=== PATIENT | female | born 1940 | race Caucasian/White ===

== ENCOUNTER 2016-09-22 18:24 | Emergency (ER) | payer MEDICARE, OTHER ==
[~2016-09-22] VITALS: Ht 157.5 cm; Wt 69.9 kg
[~2016-09-22 18:24] MED LIST: C250T PO; CALC-80 PO; CITA20TA4 PO; FENO134C PO; HYDR1TAB PO; LVT.1T PO; OMEG1CAP51 PO; VALS1TAB4 PO
--- OUTSIDE RECORDS SUMMARY | 2016-09-22 18:29 | XMS REPORT | Continuity of Care Document ---
Author Author [facility] Organization [facility] Address Unknown Phone Unavailable Allergies Active Description Code Type Severity Reaction Onset Reported/Identified Relationship to Patient Clinical Status Yes No Known Drug Allergies [id number] Drug Allergy Unknown N/ A 04/25/2010 Medications Problems Date Dx Coded Attending Type Code Diagnosis Diagnosed By 04/27/2010 Ot 574.10 10/15/2014 Ot V76.12 10/15/2014 Ot 574.20 10/15/2014 Ot V72.63 10/15/2014 Ot V72.81 10/15/2014 Ot V74.8 10/15/2014 Ot V76.12 10/15/2014 Ot 789.01 10/18/2014 FRANKY DYSON MD Ot 272.4 10/18/2014 FRANKY DYSON MD Ot 401.9 10/18/2014 FRANKY DYSON MD Ot 443.9 10/18/2014 FRANKY DYSON MD Ot 786.50 10/28/2014 FRANKY DYSON MD Ot 272.4 10/28/2014 FRANKY DYSON MD Ot 401.9 10/28/2014 FRANKY DYSON MD Ot 443.9 10/28/2014 FRANKY DYSON MD Ot 786.50 11/03/2014 FRANKY DYSON MD Ot 272.4 11/03/2014 FRANKY DYSON MD Ot 401.9 11/03/2014 FRANKY DYSON MD Ot 443.9 11/03/2014 FRANKY DYSON MD Ot 786.50 12/07/2014 Ot V76.12 12/07/2014 Ot 574.20 12/07/2014 Ot V72.63 12/07/2014 Ot V72.81 12/07/2014 Ot V74.8 12/07/2014 Ot V76.12 12/07/2014 Ot 789.01 12/07/2014 KARIS MD, BASHAR J Ot 272.4 12/07/2014 KARIS CEDILLO, BASHAR J Ot 401.9 12/07/2014 KARIS CEDILLO, BASHAR J Ot 443.9 12/07/2014 KARIS CEDILLO, BASHAR J Ot 786.50 12/07/2014 KARIS CEDILLO, BASHAR J Ot 272.4 12/07/2014 KARIS CEDILLO, BASHAR J Ot 401.9 12/07/2014 KARIS CEDILLO, BASHAR J Ot 443.9 12/07/2014 KARIS CEDILLO, BASHAR J Ot 786.50 12/08/2014 KARIS CEDILLO, BASHAR J Ot 401.9 12/21/2014 KARIS CEDILLO, BASHAR J Ot 272.4 12/21/2014 KARIS CEDILLO, BASHAR J Ot 401.9 12/21/2014 KARIS CEDILLO, KIRTIHAR J Ot 443.9 12/21/2014 KARIS CEDILLO, FRANKY J Ot 786.50 12/21/2014 KARIS CEDILLO, BASHAR J Ot 401.9 12/22/2014 KARIS CEDILLO, BASHAR J Ot 401.9 01/07/2015 KARIS CEDILLO, BASHAR J Ot 272.4 01/07/2015 KARIS CEDILLO, BASHAR J Ot 401.9 01/07/2015 KARIS CEDILLO, BASHAR J Ot 443.9 01/07/2015 KARIS CEDILLO, FRANKY J Ot 786.50 01/10/2015 KARIS CEDILLO, BASHAR J Ot 401.9 01/10/2015 KARIS CEDILLO, BASHAR J Ot 401.9 01/10/2015 KARIS CEDILLO, FRANKY J Ot 272.4 01/10/2015 KARIS CEDILLO, BASHAR J Ot 401.9 01/10/2015 KARIS CEDILLO, BASHAR J Ot 443.9 01/10/2015 KARIS CEDILLO, BASHAR J Ot 786.50 03/07/2015 KARIS CEDILLO, BASHAR J Ot 401.9 HYPERTENSION NOS 04/18/2015 KARIS CEDILLO, KIRTIHAR J Ot 272.4 04/18/2015 KARIS CEDILLO, BASHAR J Ot 401.9 04/18/2015 KARIS CEDILLO, KIRTIHAR J Ot 443.9 04/18/2015 KARIS CEDILLO, KIRTIHAR J Ot 786.50 08/10/2015 Ot 574.20 08/10/2015 Ot V72.63 08/10/2015 Ot V72.81 08/10/2015 Ot V74.8 08/10/2015 Ot V76.12 08/10/2015 Ot 789.01 08/10/2015 FRANKY DYSON MD Ot 272.4 08/10/2015 KARIS CEDILLO, FRANKY [place] Ot 401.9 08/10/2015 KARIS CEDILLO, FRANKY [place] Ot 443.9 08/10/2015 FRANKY DYSON MD Ot 786.50 08/10/2015 KARIS CEDILOL, FRANKY [place] Ot 272.4 08/10/2015 KARIS CEDILLO, FRANKY J Ot 401.9 08/10/2015 KARIS CEDILLO, FRANKY [place] Ot 443.9 08/10/2015 FRANKY DYSON MD Ot 786.50 08/10/2015 KARIS CEDILLO, FRANKY [place] Ot 401.9 08/10/2015 FRANKY DYSON MD Ot 401.9 11/03/2015 KARIS CEDILLO, FRANKY [place] Ot 272.4 11/03/2015 KARIS CEDILLO, FRANKY [place] Ot 401.9 11/03/2015 KARIS CEDILLO, FRANKY [place] Ot 443.9 11/03/2015 FRANKY DYSON MD Ot 786.50 09/22/2016 Ot 789.01 ABDOMINAL PAIN, RIGHT UPPER QUADRANT 09/22/2016 FRANKY DYSON MD Ot 272.4 HYPERLIPIDEMIA NEC/NOS 09/22/2016 FRANKY DYSON MD Ot 401.9 HYPERTENSION NOS 09/22/2016 FRANKY DYSON MD Ot 443.9 PERIPH VASCULAR DIS NOS 09/22/2016 FRANKY DYSON MD Ot 786.50 CHEST PAIN NOS 09/22/2016 FRANKY DYSON MD Ot 272.4 HYPERLIPIDEMIA NEC/NOS 09/22/2016 FRANKY DYSON MD Ot 401.9 HYPERTENSION NOS 09/22/2016 FRANKY DYSON MD Ot 443.9 PERIPH VASCULAR DIS NOS 09/22/2016 FRANKY DYSON MD Ot 786.50 CHEST PAIN NOS 09/22/2016 FRANKY DYSON MD Ot 401.9 HYPERTENSION NOS 09/22/2016 FRANKY DYSON MD Ot 401.9 HYPERTENSION NOS 09/22/2016 MEREDITH CEDILLO, RONALD Lora Ot Z12.31 ENCNTR SCREEN MAMMOGRAM FOR MALIGNANT NE Procedures Results Encounters ACCT No. Visit Date/Time Discharge Status Pt. Type Provider Facility Loc./Unit Complaint [id number] 03/08/2015 00:10:00 2014 23:59:59 CLS Preadmit FRANKY DYSON MD [facility] LAB HTN [id number] 12/15/2014 10:07:00 2014 00:01:00 DIS Outpatient FRANKY DYSON MD [facility] LAB HTN [id number] 12/20/2014 08:28:00 2014 23:59:59 CLS Outpatient FRANKY DYSON MD [facility] RAD HTN [id number] 11/01/2014 07:51:00 2014 23:59:59 CLS Outpatient FRANKY DYSON MD [facility] CARD CP,HTN,HLP [id number] 10/15/2014 13:42:00 2014 23:59:59 CLS Outpatient FRANKY DYSON MD [facility] CARD CP,HTN,HLP [id number] 09/22/2016 18:25:00 ACT Emergency DC HALL DO [facility] ER HIGH BP [id number] 08/10/2015 09:15:00 ACT Outpatient RONALD HARPER MD [facility] RAD SCREENING [id number] 10/15/2014 13:41:00 Document Registration [id number] 10/15/2014 13:41:00 Document Registration [id number] 10/15/2014 13:41:00 Document Registration [id number] 04/27/2010 05:56:00 Document Registration [id number] 04/25/2010 08:09:00 Document Registration [id number] 12/20/2009 07:51:00 Document Registration
[2016-09-22] MEDS ORDERED: LORA0.5T (19:28)
--- NOTE | 2016-09-22 19:29 | ED Cardiac General ---
History of Present Illness General Chief Complaint: Cardiac/General Problems Stated Complaint: HIGH BP Source: patient, RN notes reviewed Exam Limitations: no limitations History of Present Illness Time seen by provider: 19:29 Initial Comments Patient complaining of DICKENS x 2 days as well as chest fullness x 24 hours and back pain x 12 hours. Hx of hypertension and has noted her BP to be high. Denies missing any doses of her medications. Timing/Duration: 1-2 days Severity: moderate Location: substernal Activities at Onset: none Modifying Factors: improves with other (none) NTG SL PLASTICATOR: No ASA po PLASTICATOR: No Associated Systoms: Chest Pain, Headaches Allergies and Home Medications Allergies Coded Allergies: No Known Drug Allergies (Unverified , 04/25/10) Home Medications Amlodipine Besylate 5 Mg Tablet, 5 MG PO DAILY, #30 Ref 2 Prescribed by: DC HALL on 09/22/162058 Citalopram Hydrobromide 20 Mg Tablet, 20 MG PO DAILY, (Reported) Clonidine 1 Each Patch.tdwk, 1 PATCH TD Q7D, (Reported) Dicyclomine HCl 20 Mg Tablet, 20 MG PO QID, (Reported) Hydrochlorothiazide 25 Mg Tablet, 25 MG PO DAILY, (Reported) Levothyroxine Sodium 100 Mcg Tablet, 1 EACH PO DAILY, (Reported) Lorazepam 0.5 Mg Tablet, #45 (Reported) Metoprolol Tartrate 50 Mg Tablet, 50 MG PO BID, (Reported) Pantoprazole Sodium 40 Mg Tablet.dr, 40 MG PO DAILY, (Reported) Valsartan 320 Mg Tablet, 320 MG PO DAILY, (Reported) Zolpidem Tartrate 5 Mg Tablet, 5 MG PO HS, (Reported) Review of Systems Constitutional: see HPI Cardiovascular: See HPI, Chest Pain Musculoskeletal: see HPI, back pain Psychiatric/Neurological: See HPI, Headache Past Dymeusj-Engfhg-Rlvqlx Hx Patient Social History Recent Foreign Travel: No Contact w/Someone Who Travel: No Respiratory Hx Respiratory Disorders: No Cardiovascular Hx Cardiac Disorders: Yes Neurological Hx Neurological Disorders: No Reproductive System Hx Reproductive Disorders: No Genitourinary Hx Genitourinary Disorders: No Gastrointestinal Hx Gastrointestinal Disorders: No Musculoskeletal Hx Musculoskeletal Disorders: Yes (RA) Endocrine Hx Endocrine Disorders: Yes HEENT HX ENT Disorders: No Blood Transfusions Hx Blood Disorders: No Physical Exam Vital Signs Capillary Refill : General Appearance: No Apparent Distress, WD/WN HEENT: PERRL/EOMI, Normal ENT Inspection Respiratory: No Respiratory Distress Cardiovascular: Regular Rate, Rhythm Rectal: Deferred Neurologic/Psychiatric: Alert, Oriented x3, No Motor/Sensory Deficits, Normal Mood/Affect Skin: Warm/Dry Progress/Results/Core Measures Results/Orders Lab Results Laboratory Tests Test 09/22/16 19:23 09/22/16 20:22 Range/Units White Blood Count 5.4 4.3-11.0 10^3/uL Red Blood Count 4.17 L 4.35-5.85 10^6/uL Hemoglobin 13.2 11.5-16.0 G/DL Hematocrit 39 35-52 % Mean Corpuscular Volume 95 80-99 FL Mean Corpuscular Hemoglobin 32 25-34 PG Mean Corpuscular Hemoglobin Concent 34 32-36 G/DL Red Cell Distribution Width 13.7 10.0-14.5 % Platelet Count 184 130-400 10^3/uL Mean Platelet Volume 11.0 H 7.4-10.4 FL Neutrophils (%) (Auto) 40 L 42-75 % Lymphocytes (%) (Auto) 44 12-44 % Monocytes (%) (Auto) 11 0-12 % Eosinophils (%) (Auto) 4 0-10 % Basophils (%) (Auto) 1 0-10 % Neutrophils # (Auto) 2.2 1.8-7.8 X 10^3 Lymphocytes # (Auto) 2.4 1.0-4.0 X 10^3 Monocytes # (Auto) 0.6 0.0-1.0 X 10^3 Eosinophils # (Auto) 0.2 0.0-0.3 10^3/uL Basophils # (Auto) 0.0 0.0-0.1 10^3/uL Sodium Level 142 135-145 MMOL/L Potassium Level 3.6 3.6-5.0 MMOL/L Chloride Level 110 H 98-107 MMOL/L Carbon Dioxide Level 24 21-32 MMOL/L Anion Gap 8 5-14 MMOL/L Blood Urea Nitrogen 21 H 7-18 MG/DL Creatinine 0.97 0.60-1.30 MG/DL Estimat Glomerular Filtration Rate 56 BUN/Creatinine Ratio 22 Glucose Level 91 70-105 MG/DL Calcium Level 8.9 8.5-10.1 MG/DL Magnesium Level 2.2 1.8-2.4 MG/DL Total Bilirubin 0.3 0.1-1.0 MG/DL Aspartate Amino Transf (AST/SGOT) 14 5-34 U/L Alanine Aminotransferase (ALT/SGPT) 14 0-55 U/L Alkaline Phosphatase 53 40-136 U/L Troponin I < 0.30 <0.30 NG/ML B-Type Natriuretic Peptide 92.9 <100.0 PG/ML Total Protein 6.9 6.4-8.2 G/DL Albumin 3.8 3.2-4.5 G/DL Urine Color YELLOW Urine Clarity CLEAR Urine pH 6 5-9 Urine Specific [place] 1.015 L 1.016-1.022 Urine Protein NEGATIVE NEGATIVE Urine Glucose (UA) NEGATIVE NEGATIVE Urine Ketones NEGATIVE NEGATIVE Urine Nitrite NEGATIVE NEGATIVE Urine Bilirubin NEGATIVE NEGATIVE Urine Urobilinogen NORMAL NORMAL MG/DL Urine Leukocyte Esterase 2+ H NEGATIVE Urine RBC (Auto) NEGATIVE NEGATIVE Urine RBC NONE /HPF Urine WBC 0-2 /HPF Urine Squamous Epithelial Cells 10-25 H /HPF Urine Renal Epithelial Cells NONE /HPF Urine Crystals NONE /LPF Urine Bacteria NEGATIVE /HPF Urine Casts NONE /LPF Urine Mucus NEGATIVE /LPF Urine Culture Indicated NO My Orders Orders - DC HALL DO Saline Lock/Iv-Start (09/22/16 19:30) Ekg Tracing (09/22/16 19:30) BNP (09/22/16 19:30) Cbc With Automated Diff (09/22/16 19:30) Comprehensive Metabolic Panel (09/22/16 19:30) Magnesium (09/22/16 19:30) Troponin I (09/22/16 19:30) Ua Culture If Indicated (09/22/16 19:30) Chest 1 View, Ap/Pa Only (09/22/16 19:30) Hydralazine Injection (Apresoline Inject (09/22/16 19:45) Amlodipine Tablet (Norvasc Tablet) (09/22/16 20:15) Iv Push Casting Supervisor Ed (09/22/16 ) Medications Given in ED Vital Signs/I&O ECG Initial ECG Impression Date: Sep 22, 2016 Initial ECG Impression Time: 19:25 Initial ECG Rate: 58 Initial ECG Rhythm: S.Pop Initial ECG Intervals: Normal Initial ECG Impression: Nonspecific Changes (LVH c/ secondary to repolarization abnormality; probable inferior infarct of ? age) Initial ECG Comparisson: No Previous ECG Available Diagnostic Imaging Diagonstic Imaging: Xray Plain Films/CT/US/NM/MRI: chest (big heart o/w unremarkable) Departure Impression Impression: Primary Impression: Hypertensive urgency Disposition: HOME, SELF-CARE Condition: Improved Departure-Patient Inst. Decision time for Depature: 20:58 Referrals: RONALD HARPER MD (PCP) Primary Care Physician Patient Instructions: High Blood Pressure in Adults Scripts Amlodipine Besylate (Norvasc) 5 Mg Tablet 5 MG PO DAILY, #30 TAB 2 Refills Prov: DC HALL DO 09/22/16 DC HALL DO Sep 22, 2016 19:29
[2016-09-22 19:39] LABS: BASOPHILS % (AUTO) 1 % (0-10); EOSINOPHILS # (AUTO) 0.2 10^3/uL (0.0-0.3); EOSINOPHILS % (AUTO) 4 % (0-10); LYMPHOCYTES # (AUTO) 2.4 X 10^3 (1.0-4.0); LYMPHOCYTES % (AUTO) 44 % (12-44); MEAN CORPUSCULAR HEMOGLOBIN 32 PG (25-34); MEAN CORPUSCULAR HGB CONC 34 G/DL (32-36); MEAN CORPUSCULAR VOLUME 95 FL (80-99); MONOCYTES # (AUTO) 0.6 X 10^3 (0.0-1.0); MONOCYTES % (AUTO) 11 % (0-12); NEUTROPHILS # (AUTO) 2.2 X 10^3 (1.8-7.8); NEUTROPHILS % (AUTO) 40 % (42-75); PLATELET COUNT 184 10^3/uL (130-400); RED BLOOD COUNT 4.17 10^6/uL (4.35-5.85); RED CELL DISTRIBUTION WIDTH 13.7 % (10.0-14.5); WHITE BLOOD COUNT 5.4 10^3/uL (4.3-11.0)
[2016-09-22] MEDS ORDERED: hydrALAZINE (APESOLINE) 20 MG/ML VIAL IV ONE (19:45)
[2016-09-22 19:53] LABS: ALANINE AMINOTRANSFERASE 14 U/L (0-55); ALBUMIN 3.8 G/DL (3.2-4.5); ANION GAP 8 MMOL/L (5-14); ASPARTATE AMINO TRANSFERASE 14 U/L (5-34); BILIRUBIN,TOTAL 0.3 MG/DL (0.1-1.0); BLOOD UREA NITROGEN 21 MG/DL (7-18); BUN/CREATININE RATIO 22; CALCIUM 8.9 MG/DL (8.5-10.1); CARBON DIOXIDE 24 MMOL/L (21-32); CHLORIDE 110 MMOL/L (98-107); CREATININE SERUM 0.97 MG/DL (0.60-1.30); GFR ESTIMATED 56; GLUCOSE 91 MG/DL (70-105); MAGNESIUM 2.2 MG/DL (1.8-2.4); POTASSIUM 3.6 MMOL/L (3.6-5.0); SODIUM 142 MMOL/L (135-145); TOTAL PROTEIN 6.9 G/DL (6.4-8.2)
[2016-09-22 19:58] LABS: TROPONIN I < 0.30 NG/ML (<0.30)
[2016-09-22] MEDS ORDERED: amLODIPine 5 MG (NORVASC) TAB PO ONE (20:15)
[2016-09-22 20:30] LABS: BILIRUBIN,URINE NEGATIVE (NEGATIVE); KETONES,URINE NEGATIVE (NEGATIVE); LEUKOCYTE ESTERASE ,URINE 2+ (NEGATIVE); NITRITE,URINE NEGATIVE (NEGATIVE); PH,URINE 6 (5-9); PROTEIN,URINE NEGATIVE (NEGATIVE); UROBILINOGEN,URINE NORMAL (NORMAL)
[2016-09-22 20:42] LABS: WBC,URINE 0-2 /HPF
[2016-09-22] MEDS ORDERED: AMLO5TAB4 PO (20:59)
[2016-09-22 21:13] VITALS: BP 171/96
--- NOTE | 2016-09-22 21:37 | Diagnostic Imaging Report ---
EXAM: CHEST 1 VIEW, AP/PA ONLY INDICATION: Hypertension. COMPARISON: None. FINDINGS: Cardiomegaly. Normal pulmonary vascularity. No focal pulmonary opacity, pleural effusion or pneumothorax. Calcified tortuous aorta. No acute osseous findings. IMPRESSION: Cardiomegaly with normal pulmonary vascularity. No focal consolidation. Dictated by: Dictated on workstation # [id number]
[2016-09-23] MEDS ORDERED: VALS320T14 PO (00:05)
[2016-09-23] MEDS ORDERED: PANT40TA3 PO (00:05)
[2016-09-23] MEDS ORDERED: METO50TA2 PO (00:05)
[2016-09-23] MEDS ORDERED: ZOLP5TAB7 PO (00:05)
[2016-09-23] MEDS ORDERED: HYDR25TA4 PO (00:05)
[2016-09-23] MEDS ORDERED: DICY20TA10 PO (00:05)
[2016-09-23] MEDS ORDERED: CLON1PAT16 TD (00:05)
== END 2016-09-22 21:13 | disposition home or self-care (01) ==
LOC: EDUNIT# 18:24 → ER 18:25
DX: I16.0 Hypertensive urgency (principal); Z79.899 Other long term (current) drug therapy
CPT/HCPCS: 36415; 71010; 80053; 81000; 83735; 83880; 84484; 85025; 93005; 96374

== ENCOUNTER → 2016-10-02 | Outpatient (CLI) | payer MEDICARE, OTHER ==
[~2016-10-02] MED LIST changes: +AMLO5TAB4 PO; +CLON1PAT16 TD; +DICY20TA10 PO; +HYDR25TA4 PO; +LORA0.5T; +METO50TA2 PO; +PANT40TA3 PO; +VALS320T14 PO; +ZOLP5TAB7 PO
--- OUTSIDE RECORDS SUMMARY | 2016-10-02 12:04 | XMS REPORT | Continuity of Care Document ---
Author Author [facility] Organization [facility] Address Unknown Phone Unavailable Care Team Providers Care Paper Machine Tender Name Role Phone RONALD HARPER MD PCP Insurance Providers Payer Name Policy Number Subscriber Name Relationship [employer] Gold Choice [id number] Cheryl Osborne 18 Self / Same As Patient Advance Directives Directive Response Recorded Date/Time Advance Directives No 09/22/16 7:02pm Health Care Power of Director Of Publications No 09/22/16 7:02pm Organ Donor No 09/22/16 7:02pm Resuscitation Status Full Code 09/22/16 7:02pm Chief Complaint and Reason for Visit Chief Complaint Cardiac/General Problems Reason for Visit Hypertensive urgency Problems Active Problems Medical Problem Onset Date Status Hypertensive urgency Unknown Acute Medications Current Home Medications Medication Dose Units Route Directions Days/Qty Instructions Start Date Hctz/Valsartan 1 Each 1 Each Oral Daily 04/25/10 Levothyroxine Sodium (Levothroid) 100 Mcg 1 Each Oral Daily 04/25/10 Citalopram Hydrobromide 20 Mg 20 Mg Oral Daily 04/25/10 Fenofibrate (Lofibra) 134 Mg 1 Each Oral Daily 04/25/10 [place]-3 Fatty Acids/Fish Oil 1 Each 1 Each Oral Daily 04/25/10 Calcium Carbonate/Vitamin D3 1 Each 2 Each Oral Daily 04/25/10 Ascorbic Acid 250 Mg 250 Mg Oral Daily 04/25/10 Acetaminophen/Hydrocodone Bitart 1 Each 1 - 2 Each Oral Q4hr Prn 01/28 Lorazepam 0.5 Mg 45 09/22/16 Amlodipine Besylate 5 Mg 5 Mg Oral Daily 30 09/22/16 Social History Social History Problem Response Recorded Date/Time Alcohol Use Denies Use 09/22/2016 7:02pm Recreational Drug Use No 09/22/2016 7:02pm Recent Foreign Travel No 09/22/2016 7:02pm Recent Infectious Disease Exposure No 09/22/2016 7:02pm Hospitalization with Isolation Denies 09/22/2016 7:02pm Sexually Transmitted Disease No 09/22/2016 7:02pm Smoking Status Never a Smoker 09/22/2016 7:02pm Recent Hopitalizations No 09/22/2016 7:02pm Sexually Transmitted Disease No 09/22/2016 7:02pm Hospitalization with Isolation Denies 09/22/2016 7:02pm Hx Sexually Transmitted Disorders No 04/27/2010 6:50am Query Response Start Date Stop Date Smoking Status Never a Smoker Hospital Discharge Instructions No hospital discharge instructions. Plan of Care Discharge Date 09/22/16 9:13pm Disposition 01 HOME, SELF-CARE Condition at Discharge Improved Instructions/Education Provided High Blood Pressure in Adults Prescriptions See Medication Section Referrals RONALD HARPER MD - Primary Care Physician Functional Status No functional status results. Allergies, Adverse Reactions, Alerts No known allergies. Immunizations No immunization records. Vital Signs Acute Vital Signs Vital Response Date/Time Temperature (Fahrenheit) 98.3 degrees F (97.6 - 99.5) 09/22/2016 7:02pm Temperature (Calculated Celsius) 36.17595 degrees C (36.4 - 37.5) 09/22/2016 7:02pm Temperature Source Temporal 09/22/2016 7:02pm Pulse Rate (adult) 63 bpm (60 - 90) 09/22/2016 7:02pm Respiratory Rate 20 bpm (12 - 24) 09/22/2016 7:02pm O2 Sat by Pulse Oximetry 97 % (88 - 100) 09/22/2016 7:02pm Blood Pressure 245/120 mm Hg 09/22/2016 7:02pm Blood Pressure Mean 161 mm Hg 09/22/2016 7:02pm Pain Numeric Pain Scale 4 09/22/2016 7:02pm Height (Feet) 5 feet 09/22/2016 7:02pm Height (Inches) 2 inches 09/22/2016 7:02pm Height (Calculated Centimeters) 157.014671 cm 09/22/2016 7:02pm Weight (Pounds) 154 pounds 09/22/2016 7:02pm Weight (Calculated Kilograms) 69.523984 kilograms 09/22/2016 7:02pm Capillary Refill Capillary Refill Less Than 3 Seconds 09/22/2016 7:02pm Height 5 ft 2 in Weight 154 lb Body Mass Index 28.2 kg/m^2 Results Laboratory Results Test Name Result Units Flags Reference Collection Date/Time Result Date/ Time Comments White Blood Count 5.4 10^3/uL 4.3-11.0 09/22/2016 7:23pm 09/22/2016 7: 55pm Red Blood Count 4.17 10^6/uL L 4.35-5.85 09/22/2016 7:23pm 09/22/2016 7: 55pm Hemoglobin 13.2 G/DL 11.5-16.0 09/22/2016 7:pm 09/22/2016 7:55pm Hematocrit 39 % 35-52 09/22/2016 7:09/22/2016 7:55pm Mean Corpuscular Volume 95 FL 80-99 09/22/2016 7:pm 09/22/2016 7: 55pm Mean Corpuscular Hemoglobin 32 PG 25-34 09/22/2016 7:pm 09/22/2016 7: 55pm Mean Corpuscular Hemoglobin Concent 34 G/DL 32-36 09/22/2016 7:pm 10/2016 7:55pm Red Cell Distribution Width 13.7 % 10.0-14.5 09/22/2016 7:pm 2016 7:55pm Platelet Count 184 10^3/uL 130-400 09/22/2016 7:pm 09/22/2016 7:55pm Mean Platelet Volume 11.0 FL H 7.4-10.4 09/22/2016 7:pm 09/22/2016 7: 55pm Neutrophils (%) (Auto) 40 % L 42-75 09/22/2016 7:pm 09/22/2016 7:55pm Lymphocytes (%) (Auto) 44 % 12-44 09/22/2016 7:09/22/2016 7:55pm Monocytes (%) (Auto) 11 % 0-12 09/22/2016 7:23pm 09/22/2016 7:55pm Eosinophils (%) (Auto) 4 % 0-10 09/22/2016 7:23pm 09/22/2016 7:55pm Basophils (%) (Auto) 1 % 0-10 09/22/2016 7:23pm 09/22/2016 7:55pm Neutrophils # (Auto) 2.2 X 10^3 1.8-7.8 09/22/2016 7:23pm 09/22/2016 7: 55pm Lymphocytes # (Auto) 2.4 X 10^3 1.0-4.0 09/22/2016 7:23pm 09/22/2016 7: 55pm Monocytes # (Auto) 0.6 X 10^3 0.0-1.0 09/22/2016 7:23pm 09/22/2016 7: 55pm Eosinophils # (Auto) 0.2 10^3/uL 0.0-0.3 09/22/2016 7:23pm 09/22/2016 7 :55pm Basophils # (Auto) 0.0 10^3/uL 0.0-0.1 09/22/2016 7:23pm 09/22/2016 7: 55pm Urine Color YELLOW 09/22/2016 8:22pm 09/22/2016 8:43pm Urine Clarity CLEAR 09/22/2016 8:22pm 09/22/2016 8:43pm Urine pH 6 5-9 09/22/2016 8:22pm 09/22/2016 8:43pm Urine Specific [place] 1.015 * 1.016-1.022 09/22/2016 8:22pm 2016 8:43pm Urine Protein NEGATIVE NEGATIVE 09/22/2016 8:22pm 09/22/2016 8:43pm Urine Glucose (UA) NEGATIVE NEGATIVE 09/22/2016 8:22pm 09/22/2016 8: 43pm Urine RBC (Auto) NEGATIVE NEGATIVE 09/22/2016 8:22pm 09/22/2016 8: 43pm Urine Ketones NEGATIVE NEGATIVE 09/22/2016 8:22pm 09/22/2016 8:43pm Urine Nitrite NEGATIVE NEGATIVE 09/22/2016 8:22pm 09/22/2016 8:43pm Urine Bilirubin NEGATIVE NEGATIVE 09/22/2016 8:22pm 09/22/2016 8: 43pm Urine Urobilinogen NORMAL MG/DL NORMAL 09/22/2016 8:22pm 09/22/2016 8: 43pm Urine Leukocyte Esterase 2+ * NEGATIVE 09/22/2016 8:22pm 09/22/2016 8: 43pm Urine RBC NONE /HPF 09/22/2016 8:22pm 09/22/2016 8:43pm Urine WBC 0-2 /HPF 09/22/2016 8:pm 09/22/2016 8:43pm Urine Bacteria NEGATIVE /HPF 09/22/2016 8:22pm 09/22/2016 8:43pm Urine Squamous Epithelial Cells 10-25 /HPF * 09/22/2016 8:pm 2016 8:43pm Urine Renal Epithelial Cells NONE /HPF 09/22/2016 8:22pm 09/22/2016 8 :43pm Urine Crystals NONE /LPF 09/22/2016 8:22pm 09/22/2016 8:43pm Urine Casts NONE /LPF 09/22/2016 8:pm 09/22/2016 8:43pm Urine Mucus NEGATIVE /LPF 09/22/2016 8:pm 09/22/2016 8:43pm Urine Culture Indicated NO 09/22/2016 8:pm 09/22/2016 8:43pm Sodium Level 142 MMOL/L 135-145 09/22/2016 7:23pm 09/22/2016 7:54pm Potassium Level 3.6 MMOL/L 3.6-5.0 09/22/2016 7:23pm 09/22/2016 7:54pm Chloride Level 110 MMOL/L H 98-107 09/22/2016 7:23pm 09/22/2016 7:54pm Carbon Dioxide Level 24 MMOL/L 21-32 09/22/2016 7:pm 09/22/2016 7: 54pm Anion Gap 8 MMOL/L 5-14 09/22/2016 7:23pm 09/22/2016 7:54pm Blood Urea Nitrogen 21 MG/DL H 7-18 09/22/2016 7:23pm 09/22/2016 7:54pm Creatinine 0.97 MG/DL 0.60-1.30 09/22/2016 7:23pm 09/22/2016 7:54pm BUN/Creatinine Ratio 22 09/22/2016 7:09/22/2016 7:54pm Estimat Glomerular Filtration Rate 56 09/22/2016 7:pm 09/22/2016 7:54pm GFR INTERPRETIVE DATA UNITS FOR ESTIMATED GFR (eGFR): mL/min/1.73 M2 REFERENCE RANGE FOR ESTIMATED GFR (eGFR) eGFR NORMAL eGFR >60 MODERATELY DECREASED eGFR 30-59 SEVERLY DECREASED eGFR 15-29 KIDNEY FAILURE <15 (OR DIALYSIS) Glucose Level 91 MG/DL 70-105 09/22/2016 7:pm 09/22/2016 7:54pm Calcium Level 8.9 MG/DL 8.5-10.1 09/22/2016 7:pm 09/22/2016 7:54pm Magnesium Level 2.2 MG/DL 1.8-2.4 09/22/2016 7:pm 09/22/2016 7:54pm Total Bilirubin 0.3 MG/DL 0.1-1.0 09/22/2016 7:pm 09/22/2016 7:54pm Alkaline Phosphatase 53 U/L 40-136 09/22/2016 7:pm 09/22/2016 7:54pm Aspartate Amino Transf (AST/SGOT) 14 U/L 5-34 09/22/2016 7:pm 2016 7:54pm Alanine Aminotransferase (ALT/SGPT) 14 U/L 0-55 09/22/2016 7:pm 09/22 7:54pm Troponin I < 0.30 NG/ML <0.30 09/22/2016 7:pm 09/22/2016 7:59pm B-Type Natriuretic Peptide 92.9 PG/ML <100.0 09/22/2016 7:2016 8:27pm Total Protein 6.9 G/DL 6.4-8.2 09/22/2016 7:09/22/2016 7:54pm Albumin 3.8 G/DL 3.2-4.5 09/22/2016 7:pm 09/22/2016 7:54pm Procedures Procedure Status Date Provider(s) Tracing only of electrocardiogram Active 09/22/16 DC HALL DO Encounters Encounter Location Arrival/Admit Date Discharge/Depart Date Attending Provider Registered Emergency Room [facility] 09/22/16 6:25pm DC HALL DO Recent Diagnosis
--- NOTE | 2016-10-03 08:04 | ECHOCARDIOGRAPHY REPORT ---
PROCEDURE PHYSICIAN: FRANKY DYSON DATE OF PROCEDURE: 10/02/2016 TWO DIMENSIONAL ECHOCARDIOGRAM REPORT PRIMARY PHYSICIAN: OTHER PHYSICIAN: REFERRING PHYSICIAN: Dr. Taylor Cruz ORDERING PHYSICIAN: INDICATION FOR THE PROCEDURE: Hypertension. MEASUREMENTS DERIVED VALUES LV DIAMETER (LAX) NORMALS NORMALS Diastolic 3.9 (3.6-5.2) Eject. Fract. 60% (60%+/-6%) Systolic (2.3-3.9) Diastolic Vol. % Shortening (0.22-0.42) Systolic Vol. Aortic Root IVS THICKNESS Diastolic 1.2 (0.6-1.1) LVPW THICKNESS Diastolic 1.2 (0.6-1.1) LA DIAMETER Systolic 3.6 (2.1-3.7) FINDINGS: 1. Technical quality is good. 2. The left ventricle is normal in size with mild left ventricular hypertrophy noted diffusely. Systolic function appeared to be normal. Estimated ejection fraction 60%. Diastolic dysfunction is suggested by Doppler. 3. The left atrium is normal in size. No clot or thrombus were seen within the left atrium. 4. The right atrium and right ventricle are normal in size. No clot or thrombus were seen within the right side. 5. Mitral valve is normal in morphology with mild mitral regurgitation noted by color Doppler flow. No mitral valve prolapse. No mitral valve stenosis. 6. Aortic valve is calcified. Still has good opening and closing pattern. Doppler across the aortic valve estimated the peak gradient of 23 mm mean gradient of 11 mmHg, calculated valve area of 1.5 to 2.1 sq cm, it appeared to be in minimal aortic valve stenosis. No aortic regurgitation was seen. 7. Tricuspid valve is normal in morphology with mild tricuspid regurgitation noted by color Doppler flow. Doppler across tricuspid valve estimated pulmonary artery pressure of 27+ right atrial pressure. 8. Pulmonic valve is functioning normally. 9. No pericardial effusion. IN CONCLUSION: 1. Normal left ventricular size with mild left ventricular hypertrophy. Systolic function appeared to be normal. Estimated ejection fraction 60%. Diastolic dysfunction is suggested by Doppler. 2. Calcified aortic valve with minimal aortic valve stenosis, no aortic regurgitation. 3. Mild mitral and tricuspid regurgitation. 4. Estimated pulmonary artery pressure of 35 mmHg. Job ID: [id number] Dictated Date: 10/02/2016 16:48:56 Trash Collector Supervisor Date: 10/03/2016 08:00:24 / bill
== END ==
LOC: CARD 12:00
PROVIDERS: ATTEND Physician Assistant
DX: I65.23 Occlusion and stenosis of bilateral carotid arteries (principal); E78.2 Mixed hyperlipidemia; I10 Essential (primary) hypertension; R94.31 Abnormal electrocardiogram [ECG] [EKG]
CPT/HCPCS: 93306

== ENCOUNTER → 2017-01-03 | Outpatient (CLI) | payer MEDICARE ==
--- NOTE | 2017-01-03 12:27 | Diagnostic Imaging Report ---
PROCEDURE: MRI left upper extremity without contrast. TECHNIQUE: Multiplanar, multisequence non contrast-enhanced MRI of the left upper extremity was accomplished. INDICATION: Left shoulder pain and weakness. FINDINGS: There is no os acromiale or Hill-Sachs deformity. The acromioclavicular joint demonstrates osteoarthritic changes with subchondral edema and mild inferior osteophytes. These have a mild impression upon the myotendinous junction of the supraspinatus. There is thickening in the supraspinatus and infraspinatus distal tendons compatible with tendinosis with foci of low-grade intrasubstance tears. No full-thickness tear or tendon retraction seen. The long head biceps tendon is within its groove. There is increased signal in the distal fibers of the subscapularis tendon suggestive of tendinosis. No retracted tear. The proximal aspect of the long head biceps tendon is not well evaluated. The labrum demonstrates abnormal morphology and increased signal within the superior segment compatible with degeneration and tears. Subchondral edema in the glenoid is probably related to osteoarthritic changes with minimal subchondral edema in the inferior aspect of the humeral head seen as well. There is suggestion of prominent cartilage thinning in the central posterior aspect of the glenoid. There is a [id number] glenohumeral joint effusion. The muscle bulk and signal around the shoulder is normal. IMPRESSION: 1. Rotator cuff tendinosis and low-grade intrasubstance tear seen. 2. Glenohumeral joint osteoarthritis with cartilage thinning and subchondral edema more prominent along the glenoid. 3. Suggestion of degeneration and tear in the superior segment of the labrum. 4. 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 Dictated by: Dictated on workstation # [id number]
== END ==
LOC: RAD 11:18
PROVIDERS: ATTEND Family Medicine
DX: M19.012 Primary osteoarthritis, left shoulder (principal)
CPT/HCPCS: 73221

== ENCOUNTER 2017-03-07 14:34 | Outpatient (RCR) | payer MEDICARE, OTHER | END 2017-03-07 15:04 | disposition home or self-care (01) | PROVIDERS: ATTEND Orthopaedic Surgery Sports Medicine | DX: M19.012 Primary osteoarthritis, left shoulder (principal) ==

== ENCOUNTER 2017-04-28 22:34 | Emergency (ER) | payer MEDICARE ==
[~2017-04-28] VITALS: Ht 157.5 cm; Wt 70.3 kg
--- OUTSIDE RECORDS SUMMARY | 2017-04-28 22:40 | XMS REPORT ---
Author Author AMIRA AMATO Organization [facility] Address [address] [place] [address] Care Team Providers Care Sneller Hand Name Role Phone AMIRA AMATO Unavailable PROBLEMS Unknown Problems ALLERGIES Substance Reaction Event Type Date Status N.K.D.A. Unknown Non Drug Allergy Jul, Unknown SOCIAL HISTORY No smoking Hx information available PLAN OF CARE Activity Details Follow Up prn Reason: VITAL SIGNS Height 62 in 2016-08-07 Weight 152.6 lbs 2016-08-07 Temperature 99.0 degrees Fahrenheit 2016-08-07 Heart Rate 78 bpm 2016-08-07 Respiratory Rate 18 2016-08-07 Oximetry on room air:95 % 2016-08-07 BMI 27.91 kg/m2 2016-08-07 Blood pressure systolic 138 mmHg 2016-08-07 Blood pressure diastolic 84 mmHg 2016-08-07 MEDICATIONS Medication Instructions Dosage Frequency Start Date End Date Duration Status Levothyroxine Sodium 100 MCG Orally Once a day 1 tablet on an empty stomach in the morning 24h Active Doxycycline Hyclate 100 MG Orally every 12 hrs 1 capsule 12h Jul, Jul, 10 days Active Citalopram Hydrobromide 40 MG Orally Once a day 0.5 tablet 24h Active Mobic 7.5 MG Orally Once a day 1 tablet 24h Active Clonidine HCl 0.3 MG/24HR 1 patch to skin Active Diovan 160 MG Orally Once a day 1 tablet 24h Active RESULTS Name Result Date Reference Range INFLUENZA A & B (IN HOUSE) 2016-08-07 INFLUENZA A negative INFLUENZA B negative Control + Lot # [id number] Exp date 2018 PROCEDURES Procedure Date Ordered Related Diagnosis Body Site ALBUTEROL UNIT DOSE FORM INHALED 2016-08-07 N/A INFLUENZA ASSAY W/OPTIC Aug 07, 2016 ALBUTEROL INHAL UNIT DOSE 1 MG Aug 07, 2016 MEASURE BLOOD OXYGEN LEVEL Aug 07, 2016 Office Visit, Est Pt., Level 3 Aug 07, 2016 [facility] VISIT ESTABLISHED PATIENT Aug 07, 2016 IMMUNIZATIONS No Known Immunizations
[2017-04-28] MEDS ORDERED: fentaNYL INJECTION 100 MCG/2 ML AMP IVP STA (23:22)
[2017-04-28] MEDS ORDERED: KETOROLAC 30 MG/ML VIAL IVP STA (23:22)
[2017-04-28 23:23] LABS: BASOPHILS % (AUTO) 1 % (0-10); EOSINOPHILS # (AUTO) 0.4 10^3/uL (0.0-0.3); EOSINOPHILS % (AUTO) 6 % (0-10); LYMPHOCYTES # (AUTO) 2.3 X 10^3 (1.0-4.0); LYMPHOCYTES % (AUTO) 37 % (12-44); MEAN CORPUSCULAR HEMOGLOBIN 31 PG (25-34); MEAN CORPUSCULAR HGB CONC 34 G/DL (32-36); MEAN CORPUSCULAR VOLUME 94 FL (80-99); MEAN PLATELET VOLUME 10.9 FL (7.4-10.4); MONOCYTES # (AUTO) 0.5 X 10^3 (0.0-1.0); MONOCYTES % (AUTO) 9 % (0-12); NEUTROPHILS # (AUTO) 2.9 X 10^3 (1.8-7.8); NEUTROPHILS % (AUTO) 47 % (42-75); PLATELET COUNT 179 10^3/uL (130-400); RED BLOOD COUNT 4.08 10^6/uL (4.35-5.85); WHITE BLOOD COUNT 6.2 10^3/uL (4.3-11.0)
[2017-04-28] MEDS ORDERED: DEXAMETHASONE 10 MG/ML (DECADRON) 1 ML VIAL IV ONE (23:30)
[2017-04-28] MEDS ORDERED: DIAZ5TAB3 PO (23:34)
[2017-04-28] MEDS ORDERED: CLON0.1T (23:34)
--- NOTE | 2017-04-28 23:38 | ED General ---
General Chief Complaint: Head/Cervical Problems Stated Complaint: HEAD PAIN UPSET STOMACH Nursing Triage Note: TO ED AMB WITH DGT, C/O SEVERE FRONTAL DICKENS. PT HAD CONGESTION SX WITH NASAL DRIP JUST PRIOR TO HEADACHE. PT HAS TRIED BENADRYL, TYLENOL AND HER EVENING BP MEDS ARE TAKEN. LAST DOSE CLONIDINE BETWEEN [id number] Nursing Sepsis Screen: No Definite Risk Source of Information: Patient, Family Exam Limitations: No Limitations History of Present Illness Time Seen by Provider: 23:10 Initial Comments Here with report of frontal headache and elevated blood pressure. She noted that showed rhinorrhea and then postnasal drip. She took Tylenol and Inderal and this did not help. Her blood pressure worsened afterwards. She reports taking her evening blood pressure medicines. Complains of frontal headache bilateral but also notes that she has a posterior headache as well. Does have a history of labile blood pressure that is difficult to control. She is concerned about sinus infection. Denies nausea, vomiting, diarrhea, fever or chills. States that the nasal congestion or problems came on rather quickly this evening. She knows it Benadryl probably didn't help her blood pressure but states that all she had. Timing/Duration: 4-6 Hours Severity: Moderate Modifying Factors: worse with Medication Associated Systoms: No Chest Pain, No Cough, No Diaphoresis, No Fever/Chills, Headaches, No Nausea/Vomiting, No Shortness of Air, No Weakness Allergies and Home Medications Allergies Coded Allergies: No Known Drug Allergies (Unverified , 04/25/10) Home Medications Amlodipine Besylate 5 Mg Tablet, 5 MG PO DAILY, #30 Ref 2 Prescribed by: DC HALL on 09/22/162058 Citalopram Hydrobromide 20 Mg Tablet, 20 MG PO DAILY, (Reported) Clonidine HCl 0.1 Mg Tablet, (Reported) Diazepam 5 Mg Tablet, 5 MG PO HS PRN for SLEEP, (Reported) Dicyclomine HCl 20 Mg Tablet, 20 MG PO QID, (Reported) Hydrochlorothiazide 25 Mg Tablet, 25 MG PO DAILY, (Reported) Levothyroxine Sodium 100 Mcg Tablet, 1 EACH PO DAILY, (Reported) Metoprolol Tartrate 50 Mg Tablet, 50 MG PO BID, (Reported) Pantoprazole Sodium 40 Mg Tablet.dr, 40 MG PO DAILY, (Reported) Valsartan 320 Mg Tablet, 320 MG PO DAILY, (Reported) Constitutional: see HPI, No chills, No fever EENTM: see HPI, nose congestion, nose pain, No throat pain Respiratory: no symptoms reported, No cough, No short of breath Cardiovascular: see HPI, No chest pain, No edema, No palpitations Gastrointestinal: No diarrhea, No nausea, No vomiting Genitourinary: no symptoms reported Musculoskeletal: no symptoms reported Skin: no symptoms reported Psychiatric/Neurological: See HPI, Headache, Denies Numbness All Other Systems Reviewed Negative Unless Noted: Yes Past Rdgpaum-Qdavgo-Wgnrsm Hx Patient Social History Alcohol Use: Denies Use Recreational Drug Use: No Smoking Status: Never a Smoker 2nd Hand Smoke Exposure: No Recent Foreign Travel: No Contact w/Someone Who Travel: No Recent Infectious Disease Expo: No Recent Hopitalizations: No Seasonal Allergies Seasonal Allergies: No Surgeries History of Surgeries: Yes (R TKR, BREAST BX, ORAL SURGERY) Surgeries: Appendectomy, Gallbladder, Joint Replacement Respiratory History of Respiratory Disorde: Yes Respiratory Disorders: Sleep Apnea Currently Using CPAP: No (HAS MACHINE BUT REFUSES TO WEAR) Cardiovascular History of Cardiac Disorders: Yes Cardiac Disorders: Hypertension Neurological History of Neurological Disord: No Reproductive System Hx Reproductive Disorders: No Sexually Transmitted Disease: No Genitourinary History of Genitourinary Disor: No Gastrointestinal History of Gastrointestinal Di: Yes (S/P GB SURGERY WITH SOME DUMPING SYNDROME) Gastrointestinal Disorders: Gastroesophageal Reflux, Irritable Bowel Musculoskeletal History of Musculoskeletal Dis: Yes Musculoskeletal Disorders: Arthritis Endocrine History of Endocrine Disorders: Yes Endocrine Disorders: Hypothyroidsim HEENT History of HEENT Disorders: Yes (R VITREOUS TEAR ) Cancer History of Cancer: No Psychosocial History of Psychiatric Problem: Yes (VALIUM FOR SLEEP) Behavioral Health Disorders: Sleep Difficulties, Anxiety Integumentary History of Skin or Integumenta: No Blood Transfusions History of Blood Disorders: No Reviewed Nursing Assessment Reviewed/Agree w Nursing PMH: Yes Physical Exam Vital Signs Vital Sign - Last 12Hours 04/28/17 23:02 Temp 97.5 Pulse 65 Resp 16 B/P (MAP) 187/130 Pulse Ox 94 O2 Delivery Room Air Capillary Refill : Less Than 3 Seconds General Appearance: WD/WN, Mild Distress (headache) HEENT: PERRL/EOMI, Pharynx Normal, Other (bilateral frontal sinus tenderness and moderate nasal congestion with erythema and clear rhinorrhea) Neck: Full Range of Motion, Normal Inspection, Non Tender, Supple Respiratory: Lungs Clear, Normal Breath Sounds Cardiovascular: Regular Rate, Rhythm, No Murmur Gastrointestinal: Non Tender, Soft Back: Normal Inspection, No CVA Tenderness, No Vertebral Tenderness Extremity: Normal Range of Motion, Non Tender, No Calf Tenderness Neurologic/Psychiatric: Alert, Oriented x3, No Motor/Sensory Deficits Skin: Normal Color, Warm/Dry Progress/Results/Core Measures Results/Orders Lab Results Laboratory Tests Test 04/28/17 23:15 Range/Units White Blood Count 6.2 4.3-11.0 10^3/uL Red Blood Count 4.08 L 4.35-5.85 10^6/uL Hemoglobin 12.8 11.5-16.0 G/DL Hematocrit 38 35-52 % Mean Corpuscular Volume 94 80-99 FL Mean Corpuscular Hemoglobin 31 25-34 PG Mean Corpuscular Hemoglobin Concent 34 32-36 G/DL Red Cell Distribution Width 13.0 10.0-14.5 % Platelet Count 179 130-400 10^3/uL Mean Platelet Volume 10.9 H 7.4-10.4 FL Neutrophils (%) (Auto) 47 42-75 % Lymphocytes (%) (Auto) 37 12-44 % Monocytes (%) (Auto) 9 0-12 % Eosinophils (%) (Auto) 6 0-10 % Basophils (%) (Auto) 1 0-10 % Neutrophils # (Auto) 2.9 1.8-7.8 X 10^3 Lymphocytes # (Auto) 2.3 1.0-4.0 X 10^3 Monocytes # (Auto) 0.5 0.0-1.0 X 10^3 Eosinophils # (Auto) 0.4 H 0.0-0.3 10^3/uL Basophils # (Auto) 0.0 0.0-0.1 10^3/uL Sodium Level 143 135-145 MMOL/L Potassium Level 3.5 L 3.6-5.0 MMOL/L Chloride Level 106 98-107 MMOL/L Carbon Dioxide Level 27 21-32 MMOL/L Anion Gap 10 5-14 MMOL/L Blood Urea Nitrogen 17 7-18 MG/DL Creatinine 1.02 0.60-1.30 MG/DL Estimat Glomerular Filtration Rate 53 BUN/Creatinine Ratio 17 Glucose Level 115 H 70-105 MG/DL Calcium Level 8.9 8.5-10.1 MG/DL Total Bilirubin 0.4 0.1-1.0 MG/DL Aspartate Amino Transf (AST/SGOT) 20 5-34 U/L Alanine Aminotransferase (ALT/SGPT) 18 0-55 U/L Alkaline Phosphatase 48 40-136 U/L C-Reactive Protein High Sensitivity 0.48 0.00-0.50 MG/DL Total Protein 7.1 6.4-8.2 GM/DL Albumin 3.7 3.2-4.5 GM/DL My Orders Orders - RONALD NUNEZ MD Cbc With Automated Diff (04/28/17 23:12) Comprehensive Metabolic Panel (04/28/17 23:12) Hs C Reactive Protein (04/28/17 23:12) Saline Lock/Iv-Start (04/28/17 23:12) Ct Head Wo (04/28/17 23:12) Fentanyl Injection (Sublimaze Injection (04/28/17 23:22) Ketorolac Injection (Toradol Injection) (04/28/17 23:22) Dexamethasone Injection (Decadron Inject (04/28/17 23:30) Cefdinir Capsule (Omnicef Capsule) (04/29/17 00:30) Medications Given in ED Current Medications Medications Dose Ordered Sig/Nohemi Route Start Time Stop Time Status Last Admin Dose Admin Dexamethasone Sodium Phosphate 10 mg ONCE ONCE IV 04/28/17 23:30 04/28/17 23:31 DC 04/28/17 23:42 10 MG Vital Signs/I&O Vital Sign - Last 12Hours 04/28/17 04/28/17 04/28/17 23:02 23:42 23:42 Temp 97.5 97.5 97.5 Pulse 65 Resp 16 B/P (MAP) 187/130 Pulse Ox 94 O2 Delivery Room Air Blood Pressure Mean: 149 Progress Note : Progress Note Seen and evaluated. IV, labs, fentanyl 25 g IV, Toradol 15 mg IV and Decadron [address] head to evaluate sinuses ordered. Monitor patient. 0015 : CT results reviewed. Patient's blood pressure has declined to 157/86 and she feels much better. There is fluid within both sphenoid sinuses with right greater than left suggestive of sinus disease. We will treat that cefdinir 300 mg by mouth ordered. We will continue his outpatient. Discharged home with return precautions. Patient verbalize understanding instructions and agreement with plan. Diagnostic Imaging Diagonstic Imaging: CT Plain Films/CT/US/NM/MRI: head Comments No intracranial hemorrhage, mass effect or edema. No evidence of acute cortical stroke. 2.4 cm mucus retention cyst versus polyp in the left maxillary sinus. A small amount of layering fluid is seen within the right maxillary sinus. A 0.7 cm mucus retention cyst versus polyp in the left maxillary sinus. Mild mucosal thickening of the bilateral ethmoid cells is seen. Small amount of layering fluid is seen within both sphenoid sinuses, right greater than left. Findings suggestive of sinus disease. Incidental finding hyperostosis frontalis interna. The mastoid air cells. Clear. Reviewed: Reviewed by Me Departure Impression Impression: Primary Impression: Sinusitis Qualified Codes: J01.10 - Acute frontal sinusitis, unspecified Additional Impression: Labile blood pressure Disposition: HOME, SELF-CARE Condition: Stable Departure-Patient Inst. Decision time for Depature: 00:22 Referrals: FRANKY DYSON MD (PCP) Primary Care Physician JANET GRACIA MD Patient Instructions: Sinusitis, Adult (DC) Add. Discharge Instructions: All discharge instructions reviewed with patient and/or family. Voiced understanding. Take medications as directed. Follow-up with your DrCharles in one to 2 days for recheck and further evaluation. You can consider referral to Dr. Gracia for follow-up with him for the sinusitis and the bilateral retention cyst versus polyps in the maxillary sinus region. Continue home medications as directed. Return for worse pain, fever, vomiting, weakness, breathing problems or other concerns as needed. Scripts Cefdinir (Cefdinir) 300 Mg Capsule 300 MG PO BID, #19 CAP 0 Refills Prov: RONALD NUNEZ MD 04/29/17 RONALD NUNEZ MD Apr 28, 2017 23:38
[2017-04-28 23:44] LABS: ALBUMIN 3.7 GM/DL (3.2-4.5); BILIRUBIN,TOTAL 0.4 MG/DL (0.1-1.0); CALCIUM 8.9 MG/DL (8.5-10.1); CREATININE SERUM 1.02 MG/DL (0.60-1.30); POTASSIUM 3.5 MMOL/L (3.6-5.0); TOTAL PROTEIN 7.1 GM/DL (6.4-8.2); hs C REACTIVE PROTEIN 0.48 MG/DL (0.00-0.50)
[2017-04-29] MEDS ORDERED: CEFD300C3 PO (00:24)
[2017-04-29 00:27] VITALS: BP 157/86
[2017-04-29] MEDS ORDERED: CEFDINIR 300 MG (OMNICEF) CAP PO ONE (00:30)
--- NOTE | 2017-04-29 06:57 | Diagnostic Imaging Report ---
PROCEDURE: CT head without contrast. TECHNIQUE: Multiple contiguous axial images were obtained through the brain without the use of intravenous contrast. INDICATION: Headache. FINDINGS: There is mild prominence of the ventricles and sulci. There is no hydrocephalus. There is no midline shift. There is no intracranial mass, hemorrhage or extra-axial fluid collection. There is a small lacunar infarct in the left basal ganglia. There is no evidence of an acute cortical stroke. There is an air-fluid level in the right maxillary sinus. There is a mucous retention cyst and/or polyp in the left maxillary sinus. The frontal, ethmoid and sphenoid sinuses are clear. Mastoid air cells are clear. Incidental note is made of some hyperostosis frontalis. IMPRESSION: Bilateral maxillary sinus disease. Atrophy and chronic lacunar infarct in the left basal ganglia, however, no acute intracranial abnormality. Dictated by: Dictated on workstation # [id number]
== END 2017-04-29 00:27 | disposition home or self-care (01) ==
LOC: EDUNIT# 22:34 → ER 22:36
DX: J32.9 Chronic sinusitis, unspecified (principal); G47.30 Sleep apnea, unspecified; I10 Essential (primary) hypertension; K21.9 Gastro-esophageal reflux disease without esophagitis; E03.9 Hypothyroidism, unspecified; F41.9 Anxiety disorder, unspecified; Z87.19 Personal history of other diseases of the digestive system; Z96.651 Presence of right artificial knee joint; Z90.49 Acquired absence of other specified parts of digestive tract
CPT/HCPCS: 36415; 70450; 80053; 85025; 86141

== ENCOUNTER → 2019-03-11 | Outpatient (CLI) | payer MEDICARE ==
[~2019-03-11] MED LIST changes: +CEFD300C3 PO; +CLON0.1T; +DIAZ5TAB3 PO; +METO50TA15 PO; -METO50TA2 PO; -VALS320T14 PO; +VALS320T15 PO
--- NOTE | 2019-03-11 10:03 | Diagnostic Imaging Report ---
CLINICAL INDICATION: Patient with abdominal pain. EXAM: Complete abdominal ultrasound. COMPARISON: CT scan of the abdomen and pelvis performed with contrast dated 12/13/2011. FINDINGS: Portions of the pancreatic body and tail are obscured by overlying bowel gas. Otherwise, the visualized portions of the pancreas are unremarkable. The visualized portions of the abdominal aorta and IVC show no significant abnormality. There is mild diffuse hyperechogenicity seen throughout the liver. The liver surface is smooth. The liver measures 13.7 cm. There is no liver mass. There is no intrahepatic ductal dilation. The main portal vein demonstrates hepatopetal flow. The common bile duct is obscured and unable to be evaluated. The gallbladder is surgically removed. There is no abnormality in the region of the gallbladder fossa. There is a 3.0 cm cyst involving the midportion of the left kidney. Otherwise, the right and left kidneys show no hydronephrosis or other mass. The right and left kidneys measure 9.7 cm and 10.6 cm respectively. There is no intra-abdominal free fluid. IMPRESSION: 1. Limited exam due to patient body habitus and overlying bowel gas. 2. The common bile duct is obscured and cannot be evaluated; otherwise, there is no gross acute abnormality seen on the visualized portions of this complete abdominal ultrasound. The gallbladder is surgically resected. 3. There is mild diffuse hyperechogenicity seen throughout the liver, likely related to diffuse fatty infiltration of the liver and/or chronic hepatocellular disease. 4. Left renal cyst. Dictated by: Dictated on workstation # [id number]
== END ==
LOC: RAD 06:52
PROVIDERS: ATTEND Nurse Practitioner Family
DX: K76.89 Other specified diseases of liver (principal); Z90.49 Acquired absence of other specified parts of digestive tract
CPT/HCPCS: 76700

== ENCOUNTER 2019-03-18 05:34 | Outpatient (CLI) | payer MEDICARE ==
[~2019-03-18] VITALS: Ht 157.5 cm; Wt 70.3 kg
[~2019-03-18 05:34] MED LIST changes: -CLON0.1T; +CLON0.1T PO
[2019-03-18] MEDS ORDERED: LEVO100T7 PO (10:11)
[2019-03-18] MEDS ORDERED: CITA20TA9 PO (10:11)
== END 2019-03-18 10:23 | disposition home or self-care (01) ==
LOC: PREOP 05:34
PROVIDERS: ATTEND Surgery
DX: Z01.818 Encounter for other preprocedural examination (principal)

== ENCOUNTER 2019-03-25 10:34 | Day surgery (SDC) | payer MEDICARE ==
[2019-03-25] VITALS (16 sets, daily range): BP systolic 92–188; BP diastolic 62–102
[~2019-03-25] VITALS: Ht 157.5 cm; Wt 70.3 kg
[~2019-03-25 10:34] MED LIST changes: +CITA20TA9 PO; +LEVO100T7 PO
[2019-03-25] MEDS ORDERED: NS IV 500 ML 500 ML IV PRN (10:48)
[2019-03-25] MEDS ORDERED: fentaNYL INJECTION 100 MCG/2 ML AMP IVP ONE (11:00)
[2019-03-25] MEDS ORDERED: LIDOCAINE JELLY 2% 6 ML SYRINGE MM PRN (11:00)
[2019-03-25] MEDS ORDERED: MIDAZOLAM 2 MG/2 ML (VERSED) VIAL IVP ONE (11:00)
--- NOTE | 2019-03-25 11:43 | Conscious Sedation/ASA ---
Conscious Sedation Pre-Proced Time 11:30 ASA Score 2 For ASA 3 and 4: Consider anesthesia and medical clearance. Also, for patients with a history of failed moderate sedation consider anesthesia. Airway Lungs Heart ASA score ASA 1: a normal healthy patient ASA 2: a patient with a mild systemic disease (mid diabetes, controlled hypertension, obesity ASA 3: a patient with a severe systemic disease that limits activity (angina, COPD, prior Myocardial infarction) ASA 4: a patient with an incapacitating disease that is a constant threat to life (CHF, renal failure) ASA 5: a moribund patient not expected to survive 24 hrs. (ruptured aneurysm) ASA 6: a declared brain- patient whose organs are being harvested. For emergent operations, add the letter E after the classification Mallampati Classification Grade 2 Sedation Plan Analgesia, Amnesia, Plan communicated to team members, Discussed options with patient/fam, Discussed risks with patient/fam The patient is an appropriate candidate to undergo the planned procedure, sedation, and anesthesia. The patient immediately re-assessed prior to indication. MARK JOSE MD Mar 25, 2019 11:43
--- NOTE | 2019-03-25 11:44 | Progress Note-Pre Operative ---
Pre-Operative Progress Note H&P Reviewed The H&P was reviewed, patient examined and no changes noted. Date Seen by Provider: Mar 25, 2019 Time Seen by Provider: 11:30 Date H&P Reviewed: Mar 25, 2019 Time H&P Reviewed: 11:30 Pre-Operative Diagnosis: screening colonoscopy MARK JOSE MD Mar 25, 2019 11:44
[2019-03-25] MEDS ORDERED: ONDANSETRON 4 MG/2 ML (SDV) Z0FRAN IVP PRN (11:45)
[2019-03-25] MEDS ORDERED: ACETAMINOPHEN 325 MG TABLET PO PRN (11:45)
[2019-03-25] MEDS ORDERED: morphine INJ 10 MG/ML 1ML (SYR OR VIAL) IVP PRN ×2 (11:45)
[2019-03-25] MEDS ORDERED: HYDROcodone/APAP 5 MG/325 MG (LORTAB) TAB PO PRN (11:45)
--- NOTE | 2019-03-25 11:46 | Discharge Inst-Surgical ---
D/C Lap Instructions-DAMON Follow Up Activity as tolerated High Fiber Diet 25g or more per day Avoid Alcohol, Caffeine, Spicy Mineral and Acid foods. Drink 64 fluid oz or more of fluids per day. Symptoms to Report: Fever over 101 degree F, Nausea/Vomiting If any problems/questions: Contact your physician or go to Emergency Room MARK JOSE MD Mar 25, 2019 11:45
[2019-03-25] MEDS ORDERED: fentaNYL INJECTION 100 MCG/2 ML AMP ONE ×2 (12:29)
[2019-03-25] MEDS ORDERED: MIDAZOLAM 2 MG/2 ML (VERSED) VIAL ONE ×4 (12:29→12:30)
[2019-03-25] MEDS ORDERED: LIDOCAINE JELLY 2% 6 ML SYRINGE ONE (12:29)
--- NOTE | 2019-03-25 14:17 | Progress Note-Post Operative ---
Post-Operative Progess Note Surgeon (s)/Setter Up (s) Surgeon MARK JOSE MD Setter Up: none Pre-Operative Diagnosis screening colonoscopy Post-Operative Diagnosis mild chronic stage 2 ext and int hemorrhoids, mild sigmoid diverticulosis. Procedure & Operative Findings Date of Procedure 03/25/19 Procedure Performed/Findings colonoscopy Anesthesia Type cs Estimated Blood Loss Estimated blood loss (mL): minimal Specimens/Packing Specimens Removed ge jxn, antrum MARK JOSE MD Mar 25, 2019 14:17
--- NOTE | 2019-03-25 18:23 | OPERATIVE REPORT ---
DATE OF SERVICE: 03/25/2019 ATTENDING PRIMARY CARE PHYSICIAN: Dr. Taylor Cruz. PREOPERATIVE DIAGNOSIS: Screening colonoscopy. POSTOPERATIVE DIAGNOSES: Mild chronic stage II external and internal hemorrhoids with some mild irritation of one external hemorrhoidal cushion most likely due to the colonic prep. Mild sigmoid diverticulosis. Remainder of the colon and rectum were normal. PROCEDURE: Colonoscopy. SURGEON: Mark Jose MD ANESTHESIA: Conscious sedation. ESTIMATED BLOOD LOSS: Minimal. FINDINGS: Mild chronic stage II external and internal hemorrhoids with some mild irritation of one external hemorrhoidal cushion most likely due to the colonic prep. Mild sigmoid diverticulosis. Remainder of the colon and rectum were normal. DISPOSITION: The patient tolerated the procedure well. INDICATIONS: The patient is a 78-year-old female known to us. We had initially seen her in 2009 for symptomatic cholelithiasis and she underwent a laparoscopic cholecystectomy. She was seen in the office, in need of a screening colonoscopy. She has not had one done before in the past. She states that she is otherwise doing well; however, has had some crampy abdominal pain after returning from vacation as well as diarrhea. She does not report any red blood per rectum nor any dark tarry stools. She also does not report any family history of colon cancer. DESCRIPTION OF PROCEDURE: The patient was brought to the endoscopy suite, laid in the left lateral decubitus position. After adequate IV pain and sedative medications and conscious sedation anesthesia, a digital rectal examination was performed. There was mild chronic stage II external and internal hemorrhoids with inflammation of one of the external hemorrhoidal cushions with no thrombosis or bleeding. Normal sphincter tone was felt and there were no palpable masses. The endoscope was then intubated to the anus and rectum gently insufflated. The endoscope was then advanced through the valves of [place] of the rectum with no polyps or any neoplasms. The endoscope was then advanced to the sigmoid colon where a mild sigmoid diverticulosis was identified. There were no mucosal inflammatory changes to indicate any active diverticulitis. The endoscope was then advanced to the remainder of the descending, transverse and ascending colon to the cecum. These segments were normal. There were no polyps or any neoplasms identified throughout the colon or rectum. The endoscope was then slowly withdrawn while taking a second look and suctioning of residual air with no additional findings. The patient tolerated the procedure well. We will recommend a high fiber diet with at least 25 grams of fiber daily as well as significant amounts of water to promote soft stools on a daily basis. She does not need another colonoscopy for another 10 years. Job ID: [id number] DocumentID: [id number] Dictated Date: 03/25/2019 13:23:29 Catalyst Operator Date: 03/25/2019 18:23:03 Dictated By: MARK JOSE MD
== END 2019-03-25 14:30 | disposition home or self-care (01) ==
LOC: ENDO 10:34
PROVIDERS: ATTEND Surgery
DX: Z12.11 Encounter for screening for malignant neoplasm of colon (principal); K57.30 Diverticulosis of large intestine without perforation or abscess without bleeding; K64.8 Other hemorrhoids; K64.1 Second degree hemorrhoids; K21.9 Gastro-esophageal reflux disease without esophagitis; I25.10 Atherosclerotic heart disease of native coronary artery without angina pectoris; I10 Essential (primary) hypertension; E03.9 Hypothyroidism, unspecified; F41.9 Anxiety disorder, unspecified; F32.9 Major depressive disorder, single episode, unspecified; Z90.89 Acquired absence of other organs; Z96.651 Presence of right artificial knee joint; Z98.51 Tubal ligation status; Z88.8 Allergy status to other drugs, medicaments and biological substances; Z80.0 Family history of malignant neoplasm of digestive organs

== ENCOUNTER → 2020-03-18 | Outpatient (CLI) | payer MEDICARE ==
[~2020-03-18] MED LIST changes: +CATHETER FLUSH 10 ML SYR IV PRN; -DIAZ5TAB3 PO; +DIAZ5TAB49 PO; +HOLD METFORMIN - RECEIVED CONTRAST 20 ML VIAL IV SCH; +IOHEXOL 350 MG/ML 100 ML (OMNIPAQUE 350) VIAL IV ONE; +NS 100 ML (IVPB) BAG IV ONE
[2020-03-18 08:32] LABS: CALCIUM 9.3 MG/DL (8.5-10.1); CREATININE SERUM 0.97 MG/DL (0.60-1.30); POTASSIUM 3.3 MMOL/L (3.6-5.0)
--- NOTE | 2020-03-18 09:43 | Diagnostic Imaging Report ---
PROCEDURE: CT head with and without contrast. TECHNIQUE: Multiple contiguous axial images were obtained through the brain before and after the administration of intravenous contrast. Auto Exposure Controls were utilized during the CT exam to meet ALARA standards for radiation dose reduction. INDICATION: Severe vertigo. Correlation is made with head CT from 04/28/2017. FINDINGS: The ventricles and sulci are appropriate for the patient's age. No sulcal effacement or midline shift is identified. No acute intra-axial or extra-axial hemorrhage is detected. Cisterns are patent. No abnormal enhancement following contrast administration is identified. There is a mucous retention cyst or polyp in left maxillary sinus. IMPRESSION: Unremarkable pre and postcontrast CT of the brain. No acute abnormality is detected. Dictated by: Dictated on workstation # [id number]
== END ==
LOC: RAD 09:45
PROVIDERS: ATTEND Family Medicine
DX: I10 Essential (primary) hypertension (principal); H49.20 Sixth [abducent] nerve palsy, unspecified eye; R42 Dizziness and giddiness
CPT/HCPCS: 36415; 70470; 80048

== ENCOUNTER 2020-05-30 10:05 | Inpatient (IN) | payer MEDICARE ==
[~2020-05-30] VITALS: Ht 157.4 cm; Wt 72.6 kg
[~2020-05-30 10:05] MED LIST changes: -CATHETER FLUSH 10 ML SYR IV PRN; +CLN.1T PO; -CLON0.1T PO; -HOLD METFORMIN - RECEIVED CONTRAST 20 ML VIAL IV SCH; -IOHEXOL 350 MG/ML 100 ML (OMNIPAQUE 350) VIAL IV ONE; -NS 100 ML (IVPB) BAG IV ONE; -PANT40TA3 PO; +PANT40TA52 PO
[2020-05-30] MEDS ORDERED: ONDANSETRON 4 MG/2 ML (SDV) Z0FRAN IVP ONE (10:45)
[2020-05-30 10:48] LABS: BASOPHILS % (AUTO) 0 % (0-10); EOSINOPHILS % (AUTO) 0 % (0-10); HEMATOCRIT 34 % (35-52); HEMOGLOBIN 11.4 g/dL (11.5-16.0); LYMPHOCYTES % (AUTO) 23 % (12-44); MEAN CORPUSCULAR HEMOGLOBIN 32 pg (25-34); MEAN CORPUSCULAR HGB CONC 34 g/dL (32-36); MEAN CORPUSCULAR VOLUME 94 fL (80-99); MEAN PLATELET VOLUME 10.9 fL (9.0-12.2); MONOCYTES # (AUTO) 0.4 10^3/uL (0.0-1.0); MONOCYTES % (AUTO) 9 % (0-12); NEUTROPHILS # (AUTO) 2.9 10^3/uL (1.8-7.8); NEUTROPHILS % (AUTO) 68 % (42-75); PLATELET COUNT 189 10^3/uL (130-400); WHITE BLOOD COUNT 4.3 10^3/uL (4.3-11.0)
--- NOTE | 2020-05-30 10:48 | Diagnostic Imaging Report ---
INDICATION: Covid positive. COMPARISON: 09/22/2016. FINDINGS: A single view of the chest demonstrates cardiac enlargement with central vascular congestion. A questionable developing infiltrate is seen in the right medial base. There is no pneumothorax or effusion. The osseous structures are normal. IMPRESSION: 1. Cardiac enlargement with central vascular congestion. 2. Questionable developing infiltrate in the right base. Continued followup is recommended. 3. The report was faxed to Infection Control by alisha@10:45 AM. Dictated by: Dictated on workstation # [id number]
--- NOTE | 2020-05-30 10:50 | NUR ---
1000ml normal saline from [facility] infused.
--- NOTE | 2020-05-30 10:51 | ED Respiratory ---
General Chief Complaint: Respiratory Problems Stated Complaint: COVID POSITIVE Source: patient History of Present Illness Date Seen by Provider: May 30, 2020 Time Seen by Provider: 10:12 Initial Comments PT ARRIVES VIA EMS FROM HOME PT BEGAN GETTING SICK ON 05/18/20 WITH RESPIRATORY SYMPTOMS WENT THRU DRIVE-THRU COVID-19 TESTING AT [facility] ON 05/19 AND WAS POSITIVE DAUGHTER ( WHO IS A NURSE AT [employer], AND LIVES WITH PT) IS ALSO POSITIVE FOR COVID-19 PT C/O CONTINUED NON-PRODUCTIVE COUGH C/O CONTINUED SHORTNESS OF BREATH CONTINUED FEVER AND CHILLS-TEMP UP TO 101 C/O BODY ACHES C/O NAUSEA/VOMITING/DIARRHEA--NO VOMITING TODAY, BUT HAS HAD DIARRHEA X 2 TODAY. HAS BEEN KEEPING DOWN LIQUIDS, AND IS VOIDING A NORMAL AMOUNT. NO ABDOMINAL PAIN C/O FATIGUE NO CHEST PAIN NO PALPITATIONS NO HISTORY OF RESPIRATORY PROBLEMS HAS A "NARROWING OF THE ARTERY THAT GOES TO THE HEART" BUT HAS NOT HAD ANY CARDIAC INTERVENTION. ? AORTIC STENOSIS ? O2 SAT WAS 92% ON ROOM AIR FOR EMS, UP TO 98% ON 4L/NC PCP: DR. AHRPER Allergies and Home Medications Allergies Coded Allergies: Yhqtfid-Tda-Vdo Reductase Inhibitor (Verified Allergy, Severe, PROBLEMS WITH EYES, 03/18/19) Home Medications Amlodipine Besylate 5 Mg Tablet, 5 MG PO DAILY Prescribed by: DC HALL on 09/22/162058 Citalopram Hydrobromide 20 Mg Tablet, 20 MG PO DAILY, (Reported) Clonidine HCl 0.1 Mg Tablet, 0.1 MG PO DAILY, (Reported) Diazepam 5 Mg Tablet, 5 MG PO HS PRN for SLEEP, (Reported) Dicyclomine HCl 20 Mg Tablet, 20 MG PO QID, (Reported) Hydrochlorothiazide 25 Mg Tablet, 25 MG PO DAILY, (Reported) Levothyroxine Sodium 100 Mcg Tablet, 100 MCG PO DAILY, (Reported) Metoprolol Tartrate 50 Mg Tablet, 50 MG PO BID, (Reported) Pantoprazole Sodium 40 Mg Tablet.dr, 40 MG PO DAILY, (Reported) Valsartan 320 Mg Tablet, 320 MG PO DAILY, (Reported) Patient Home Medication List Home Medication List Reviewed: Yes Review of Systems Review of Systems Constitutional: see HPI, chills, fever, malaise, weakness EENTM: no symptoms reported Respiratory: see HPI, cough, short of breath Cardiovascular: no symptoms reported; No chest pain, No edema, No palpitations, No syncope Gastrointestinal: see HPI; No abdominal pain; diarrhea, loss of appetite, nausea, vomiting Genitourinary: no symptoms reported; No decreased output Musculoskeletal: see HPI (BODY ACHES) Skin: no symptoms reported Psychiatric/Neurological: No Symptoms Reported Hematologic/Lymphatic: No Symptoms Reported Immunological/Allergic: no symptoms reported Past Cftazdg-Btcydo-Kbbcte Hx Past Med/Social Hx: Reviewed and Corrections made Patient Social History Alcohol Use: Denies Use Recreational Drug Use: No Smoking Status: Never a Smoker 2nd Hand Smoke Exposure: No Recent Hopitalizations: No Immunizations Up To Date Date of Influenza Vaccine: Apr 28, 2018 Seasonal Allergies Seasonal Allergies: No Past Medical History Surgeries: Yes (R TKR, BREAST BX, ORAL SURGERY) Appendectomy, Breast, Gallbladder, Joint Replacement, Orthopedic, Vascular Surgery Respiratory: Yes Sleep Apnea Currently Using CPAP: No (HAS MACHINE BUT REFUSES TO WEAR) Cardiac: Yes (AORTIC STENOSIS, enlarged heart;VARICOSE VEINS STRIPPED) High Cholesterol, Hypertension Neurological: No Reproductive Disorders: 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 Sexually Transmitted Disease: No HIV/AIDS: No Genitourinary: No Gastrointestinal: Yes (S/P GB SURGERY WITH SOME DUMPING SYNDROME) Gastroesophageal Reflux, Diverticulosis, Hemorrhoids, Irritable Bowel Musculoskeletal: Yes (RIGHT KNEE REPLACEMENT) Arthritis Endocrine: Yes Hypothyroidsim HEENT: Yes (R VITREOUS TEAR ) Loss of Vision: Denies Hearing Impairment: Denies Cancer: No Psychosocial: Yes (VALIUM FOR SLEEP) Sleep Difficulties, Anxiety Integumentary: No Blood Disorders: No Adverse Reaction/Blood Tranf: No (N/A) Family Medical History PAST SURGICAL HISTORY: -COLONOSCOPY 2018--DIVERTICULAR DISEASE AND HEMORRHOIDS -RIGHT KNEE SCOPE -RIGHT TOTAL KNEE REPLACEMENT -BILATERAL TUBAL LIGATION -BILATERAL LEG VEIN STRIPPING -CHOLECYSTECTOMY 2009 -APPENDECTOMY SMALL CHILD -BREAST BIOPSY -ORAL SURGERY Physical Exam Vital Signs - First Documented 05/30/20 10:05 Temp 37.4 Pulse 63 Resp 20 B/P (MAP) 128/70 (89) Pulse Ox 98 O2 Delivery Nasal Cannula O2 Flow Rate 2.00 Capillary Refill : Height: 5'2.00" Weight: 155lbs. 0.0oz. [id number]; 28.4 BMI Method:Stated General Appearance: WD/WN, no apparent distress, other (NO DYSPNEA, OCCASIONAL MILD COUGH. 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, no motor/sensory deficits, alert, normal mood/affect, oriented x 3 Skin: normal color, warm/dry Focused Exam Lactate Level 05/30/20 10:30: Lactic Acid Level 0.97 Lactic Acid Level Laboratory Tests Test 05/30/20 10:30 Lactic Acid Level 0.97 MMOL/L (0.50-2.00) Progress/Results/Core Measures Suspected Sepsis SIRS Temperature: Pulse: Respiratory Rate: Laboratory Tests 05/30/20 10:30: White Blood Count 4.3 Blood Pressure / Mean: 05/30/20 10:30: Lactic Acid Level 0.97 Laboratory Tests 05/30/20 10:30: INR Comment 1.0, Platelet Count 189 05/30/20 10:45: Creatinine 0.93, Total Bilirubin 0.7 Results/Orders Lab Results Laboratory Tests Test 05/30/20 10:30 05/30/20 10:45 05/30/20 10:50 Range/Units White Blood Count 4.3 4.3-11.0 10^3/uL Red Blood Count 3.58 L 3.80-5.11 10^6/uL Hemoglobin 11.4 L 11.5-16.0 g/dL Hematocrit 34 L 35-52 % Mean Corpuscular Volume 94 80-99 fL Mean Corpuscular Hemoglobin 32 25-34 pg Mean Corpuscular Hemoglobin Concent 34 32-36 g/dL Red Cell Distribution Width 12.9 10.0-14.5 % Platelet Count 189 130-400 10^3/uL Mean Platelet Volume 10.9 9.0-12.2 fL Immature Granulocyte % (Auto) 0 % Neutrophils (%) (Auto) 68 42-75 % Lymphocytes (%) (Auto) 23 12-44 % Monocytes (%) (Auto) 9 0-12 % Eosinophils (%) (Auto) 0 0-10 % Basophils (%) (Auto) 0 0-10 % Neutrophils # (Auto) 2.9 1.8-7.8 10^3/uL Lymphocytes # (Auto) 1.0 1.0-4.0 10^3/uL Monocytes # (Auto) 0.4 0.0-1.0 10^3/uL Eosinophils # (Auto) 0.0 0.0-0.3 10^3/uL Basophils # (Auto) 0.0 0.0-0.1 10^3/uL Immature Granulocyte # (Auto) 0.0 0.0-0.1 10^3/uL Erythrocyte Sedimentation Rate 38 H 0-30 MM/HR Prothrombin Time 13.9 12.2-14.7 SEC INR Comment 1.0 0.8-1.4 Activated Partial Thromboplast Time 26 24-35 SEC D-Dimer 2.73 H 0.00-0.49 UG/ML Lactic Acid Level 0.97 0.50-2.00 MMOL/L B-Type Natriuretic Peptide 49.5 <100.0 PG/ML Smear Scan YES Sodium Level 136 135-145 MMOL/L Potassium Level 3.5 L 3.6-5.0 MMOL/L Chloride Level 103 98-107 MMOL/L Carbon Dioxide Level 21 21-32 MMOL/L Anion Gap 12 5-14 MMOL/L Blood Urea Nitrogen 15 7-18 MG/DL Creatinine 0.93 0.60-1.30 MG/DL Estimat Glomerular Filtration Rate 58 BUN/Creatinine Ratio 16 Glucose Level 99 70-105 MG/DL Calcium Level 7.6 L 8.5-10.1 MG/DL Corrected Calcium 8.2 L 8.5-10.1 MG/DL Magnesium Level 1.9 1.6-2.4 MG/DL Total Bilirubin 0.7 0.1-1.0 MG/DL Aspartate Amino Transf (AST/SGOT) 80 H 5-34 U/L Alanine Aminotransferase (ALT/SGPT) 40 0-55 U/L Alkaline Phosphatase 54 40-136 U/L Total Creatine Kinase 46 29-168 U/L Creatine Kinase MB 0.8 <6.6 NG/ML Troponin I < 0.028 <0.028 NG/ML C-Reactive Protein High Sensitivity 3.49 H 0.00-0.50 MG/DL Total Protein 6.4 6.4-8.2 GM/DL Albumin 3.3 3.2-4.5 GM/DL Procalcitonin 0.06 <0.10 NG/ML Urine Color YELLOW Urine Clarity CLEAR Urine pH 6.5 5-9 Urine Specific [place] 1.010 L 1.016-1.022 Urine Protein NEGATIVE NEGATIVE Urine Glucose (UA) NEGATIVE NEGATIVE Urine Ketones NEGATIVE NEGATIVE Urine Nitrite NEGATIVE NEGATIVE Urine Bilirubin NEGATIVE NEGATIVE Urine Urobilinogen 0.2 < = 1.0 MG/DL Urine Leukocyte Esterase 1+ H NEGATIVE Urine RBC (Auto) NEGATIVE NEGATIVE Urine RBC NONE /HPF Urine WBC 10-25 H /HPF Urine Squamous Epithelial Cells 5-10 /HPF Urine Crystals NONE /LPF Urine Bacteria MODERATE H /HPF Urine Casts NONE /LPF Urine Mucus NEGATIVE /LPF Urine Culture Indicated YES Micro Results Microbiology 05/30/20 Influenza Types A,B Antigen (DEL) - Final, Complete My Orders Orders - BANG COREAS DO Ed Iv/Invasive Line Start (05/30/20 10:11) O2 (05/30/20 10:11) Monitor-Rhythm Ecg Trace Only (05/30/20 10:11) Chest 1 View, Ap/Pa Only (05/30/20 10:11) BNP (05/30/20 10:11) Cbc With Automated Diff (05/30/20 10:11) Comprehensive Metabolic Panel (05/30/20 10:11) Creatine Kinase (05/30/20 10:11) Creatine Kinase Mb (05/30/20 10:11) Hs C Reactive Protein (05/30/20 10:11) Fibrin Degradation Products (05/30/20 10:11) Lactic Acid Analyzer (05/30/20 10:11) Magnesium (05/30/20 10:11) Procalcitonin (Pct) (05/30/20 10:11) Protime With Inr (05/30/20 10:11) Partial Thromboplastin Time (05/30/20 10:11) Ua Culture If Indicated (05/30/20 10:11) Blood Culture (05/30/20 10:11) Influenza A And B Antigens (05/30/20 10:11) Erythrocyte Sedimentation Rate (05/30/20 10:11) Troponin I (05/30/20 10:11) Ondansetron Injection (Zofran Injectio (05/30/20 10:45) Dexamethasone Injection (Decadron Injec (05/30/20 11:00) Ceftriaxone For Iv Use (Rocephin For I (05/30/20 11:00) Azithromycin Injection (Zithromax Inject (05/30/20 11:00) Urine Culture (05/30/20 10:50) Ct Angio Chest W (05/30/20 11:21) Iohexol Injection (Omnipaque 350 Mg/Ml 1 (05/30/20 11:45) Received Contrast (Hold Metformin- Contr (05/30/20 11:45) Ns (Ivpb) (Sodium Chloride 0.9% Ivpb Bag (05/30/20 11:45) Enoxaparin Injection (Lovenox Injection) (05/30/20 13:30) Enoxaparin Injection (Lovenox Injection) (05/30/20 13:31) Medications Given in ED Current Medications Medications Dose Ordered Sig/Nohemi Route Start Time Stop Time Status Last Admin Dose Admin Azithromycin 500 mg/Sodium Chloride 250 ml @ 250 mls/hr ONCE ONCE IV 05/30/20 11:00 05/30/20 11:59 DC 05/30/20 11:22 250 MLS/HR Ceftriaxone Sodium 1000 mg/ Sterile Water 10 ml @ 200 mls/hr ONCE ONCE IV 05/30/20 11:00 05/30/20 11:02 DC 05/30/20 11:14 200 MLS/HR Dexamethasone Sodium Phosphate 6 mg ONCE ONCE IV 05/30/20 11:00 05/30/20 11:01 DC 05/30/20 11:09 6 MG Enoxaparin Sodium 80 mg ONCE ONCE SC 05/30/20 13:30 05/30/20 13:39 DC 05/30/20 13:40 80 MG Iohexol 75 ml ONCE ONCE IV 05/30/20 11:45 05/30/20 11:46 DC 05/30/20 13:04 68 ML Ondansetron HCl 4 mg ONCE ONCE IVP 05/30/20 10:45 05/30/20 10:46 DC 05/30/20 11:07 4 MG Sodium Chloride 100 ml ONCE ONCE IV 05/30/20 11:45 05/30/20 11:46 DC 05/30/20 13:04 80 ML Vital Signs/I&O 05/30/20 10:05 Temp 37.4 Pulse 63 Resp 20 B/P (MAP) 128/70 (89) Pulse Ox 98 O2 Delivery Nasal Cannula O2 Flow Rate 2.00 Capillary Refill : Progress Note : Progress Note PLACED IN ISOLATION ROOM PPE WORN AT ALL TIMES O2 AT 2L/NC AND O2 SATS REMAINED IN UPPER 90'S O2 WAS HELD FOR PT TO AMBULATE SHORT DISTANCE TO IN-ROOM BATHROOM, AND O2 SATS DROPPED TO 80'S ON ROOM AIR, PLACED BACK ON O2 AT 2L/NC AND UP TO 98% AGAIN. NO DYSPNEA NOTED AT ANY TIME ECG Initial ECG Impression Date: May 30, 2020 Initial ECG Impression Time: 10:19 Initial ECG Rate: 57 Initial ECG Rhythm: Normal Sinus Initial ECG Impression: Nonspecific Changes Diagnostic Imaging Comments CXR--PER RADIOLOGIST REPORT AT 1051 IMPRESSION: 1. Cardiac enlargement with central vascular congestion. 2. Questionable developing infiltrate in the right base. Continued followup is recommended. 3. The report was faxed to Infection Control by [email or web address]@10:[address] CHEST ANGIOGRAM--PER RADIOLOGIST REPORT AT 1323 IMPRESSION: 1. Findings consistent with pulmonary emboli involving lobar as well as segmental and subsegmental branches to the right lower lobe. The overall clot burden is fairly small. No central emboli are detected. No left-sided emboli are detected. 2. Patchy bilateral upper and lower lobe groundglass pulmonary infiltrates, consistent with the patient's recent diagnosis of Covid. 3. The report was faxed to Infection Control by [email or web address]@1:20 PM. Reviewed: Reviewed by [place] Departure Communication (Admissions) 1327--SPOKE WITH DR. MILLER, HOSPITALIST, ACCEPTS PT FOR ADMIT. ADVISES NO FURTHER ANTIBIOTICS AT THIS TIME. WILL OFFER CONVALESCENT PLASMA AND PT AGREES TO THIS Impression Primary Impression: Pneumonia due to COVID-19 virus Additional Impressions: UTI (urinary tract infection) Pulmonary emboli Hypoxia Disposition: 09 ADMITTED INPATIENT Condition: Stable Admissions Decision to Admit Reason: Admit from ER (General) Decision to Admit/Date: May 30, 2020 Time/Decision to Admit Time: 13:30 Departure-Patient Inst. Referrals: RONALD HARPER MD (PCP/Family) Primary Care Physician BANG COREAS DO May 30, 2020 10:51
--- NOTE | 2020-05-30 10:55 | NUR ---
Pt up to restroom without O2. When pt returned O2 sat was in the 80's. 2 L NC applied again. Dr. Dickens notified.
[2020-05-30 10:59] LABS: SMEAR SCAN COMMENT YES
[2020-05-30 11:00] LABS: FIBRIN DEGRADATION PRODUCTS 2.73 UG/ML (0.00-0.49); PROTHROMBIN TIME PATIENT 13.9 SEC (12.2-14.7)
[2020-05-30] MEDS ORDERED: cefTRIAXone FOR IV USE 1,000 MG in WATER (STERILE) FOR INJECTION 10 ML IV ONE (11:00)
[2020-05-30] MEDS ORDERED: AZITHROMYCIN INJECTION 500 MG in NS (IVPB) 250 ML IV ONE (11:00)
[2020-05-30 11:03] LABS: ALBUMIN 3.3 GM/DL (3.2-4.5); CHLORIDE 103 MMOL/L (98-107); POTASSIUM 3.5 MMOL/L (3.6-5.0); SODIUM 136 MMOL/L (135-145)
[2020-05-30 11:03] LABS: BILIRUBIN,URINE NEGATIVE (NEGATIVE); CLARITY,URINE CLEAR; COLOR,URINE YELLOW; GLUCOSE, URINE (UA) NEGATIVE (NEGATIVE); KETONES,URINE NEGATIVE (NEGATIVE); LEUKOCYTE ESTERASE ,URINE 1+ (NEGATIVE); NITRITE,URINE NEGATIVE (NEGATIVE); PH,URINE 6.5 (5-9); PROTEIN,URINE NEGATIVE (NEGATIVE)
[2020-05-30 11:04] LABS: CALCIUM 7.6 MG/DL (8.5-10.1)
[2020-05-30 11:06] LABS: GLUCOSE 99 MG/DL (70-105); TOTAL PROTEIN 6.4 GM/DL (6.4-8.2)
[2020-05-30 11:07] LABS: CARBON DIOXIDE 21 MMOL/L (21-32)
[2020-05-30 11:08] LABS: BILIRUBIN,TOTAL 0.7 MG/DL (0.1-1.0)
[2020-05-30 11:09] LABS: ALKALINE PHOSPHATASE 54 U/L (40-136); CREATININE SERUM 0.93 MG/DL (0.60-1.30); GFR ESTIMATED 58
[2020-05-30 11:10] LABS: ERYTHROCYTE SEDIMENTATION RATE 38 MM/HR (0-30)
[2020-05-30 11:11] LABS: BUN/CREATININE RATIO 16
[2020-05-30 11:12] LABS: ALANINE AMINOTRANSFERASE 40 U/L (0-55)
[2020-05-30 11:13] LABS: CREATINE KINASE 46 U/L (29-168); MAGNESIUM 1.9 MG/DL (1.6-2.4)
[2020-05-30 11:19] LABS: BACTERIA,URINE MODERATE /HPF
[2020-05-30 11:20] LABS: CREATINE KINASE MB 0.8 NG/ML (<6.6)
[2020-05-30] MEDS ORDERED: NS 100 ML (IVPB) BAG IV ONE (11:45)
[2020-05-30] MEDS ORDERED: HOLD METFORMIN - RECEIVED CONTRAST 20 ML VIAL IV SCH (11:45)
[2020-05-30] MEDS ORDERED: IOHEXOL 350 MG/ML 100 ML (OMNIPAQUE 350) VIAL IV ONE (11:45)
--- NOTE | 2020-05-30 13:21 | Diagnostic Imaging Report ---
PROCEDURE: CT angiography of the chest with contrast. TECHNIQUE: Multiple contiguous axial images were obtained through the chest after uneventful bolus administration of intravenous contrast. 3D reconstructed CTA MIP acquisitions were also performed. Auto Exposure Controls were utilized during the CT exam to meet ALARA standards for radiation dose reduction. INDICATION: Weakness, dizziness, and right-sided chest pain. COMPARISON: No prior studies are available for comparison. FINDINGS: The central pulmonary arteries are patent. There is a small amount of clot burden on the right side with a small amount of thrombus seen within right-sided lower lobe lobar and segmental branches. No definite left-sided filling defects are seen. The upper lobes are unremarkable. The thoracic aorta is of normal caliber. No dissection is seen. There is no pericardial or pleural fluid. The parenchymal evaluation does show patchy groundglass infiltrates involving bilateral upper lobes. There are some patchy groundglass infiltrates in the right lower lobe and to lesser degree the left lower lobe. The upper abdomen is unremarkable. IMPRESSION: 1. Findings consistent with pulmonary emboli involving lobar as well as segmental and subsegmental branches to the right lower lobe. The overall clot burden is fairly small. No central emboli are detected. No left-sided emboli are detected. 2. Patchy bilateral upper and lower lobe groundglass pulmonary infiltrates, consistent with the patient's recent diagnosis of Covid. 3. The report was faxed to Infection Control by [email or web address]@1:20 PM. Dictated by: Dictated on workstation # [id number]
[2020-05-30] MEDS ORDERED: ENOXAPARIN 80 MG/0.8 ML (LOVENOX) SYR SC ONE (13:30)
[2020-05-30] MEDS ORDERED: ENOXAPARIN 80 MG/0.8 ML (LOVENOX) SYR ONE (13:31)
--- NOTE | 2020-05-30 13:46 | NUR ---
Called bar supervisor for bed.
--- NOTE | 2020-05-30 15:30 | NUR ---
RECEIVED REPORT FROM MAXWELL Edward RN AT BEDSIDE.
[2020-05-30] MEDS ORDERED: ONDANSETRON 4 MG/2 ML (SDV) Z0FRAN IVP PRN ×2 (16:15→16:45)
[2020-05-30] MEDS ORDERED: IBUPROFEN TABLET 200 MG TAB PO PRN (16:15)
[2020-05-30] MEDS ORDERED: D5 1/2 NS W/KCL 20 MEQ/L 1,000 ML IV SCH (16:15)
[2020-05-30] MEDS ORDERED: ACETAMINOPHEN 500 MG TAB (TYLENOL) CANCER CTR PO PRN ×2 (16:15)
[2020-05-30] MEDS ORDERED: CLN.1T PO (16:38)
[2020-05-30] MEDS ORDERED: IBUPROFEN 800 MG (MOTRIN) TAB PO PRN (16:45)
[2020-05-30] MEDS ORDERED: ACETAMINOPHEN 500 MG TAB (TYLENOL) PO PRN (16:45)
[2020-05-30] MEDS ORDERED: cloNIDine 0.1 MG (CATAPRES) TAB ONE (16:56)
[2020-05-30] MEDS: cloNIDine 0.1 MG (CATAPRES) TAB PO SCH (17:00)
[2020-05-30] MEDS: D5 1/2 NS W/KCL 20 MEQ/L 1,000 ML IV SCH (17:00)
[2020-05-30] MEDS ORDERED: FLU QUAD HIGH DOSE 240 MCG/0.7 ML 2020-21 (FLUZONE) IM ONE (17:15)
--- NOTE | 2020-05-30 17:18 | NUR ---
MIRI WILCOX admitted to room 510-1, with an admitting diagnosis of COVID 19, on 05/30/20 from ED via , accompanied by STAFF.MIRI WILCOX introduced to surroundings, call light, bed controls, phone, TV, temperature control, lights, meal times, smoking policy, visitor policy, side rail policy, bathrooms and showers. Patient Rights given to patient in the handbook. MIRI WILCOX verbalizes understanding that [facility] is not responsible for the loss or damage to any personal effects or valuables that are kept in the patients posession during their hospitalization.
[2020-05-30] MEDS ORDERED: REMDESIVIR INJ 200 MG in NS (IVPB) 210 ML IV ONE (18:15)
[2020-05-30] MEDS: meTOprolol TARTRATE 50 MG (LOPRESSOR) TAB PO SCH (21:03)
[2020-05-30] MEDS: DIAZEPAM 5 MG (VALIUM) TABLET PO PRN (21:03)
[2020-05-30] MEDS ORDERED: NS IV 500 ML 500 ML ONE (22:02)
[2020-05-30 22:22] VITALS: BP 156/78
[2020-05-30 22:37] VITALS: BP 152/75
[2020-05-31 00:35] VITALS: BP 145/81
[2020-05-31] MEDS: ENOXAPARIN 80 MG/0.8 ML (LOVENOX) SYR SC SCH ×2 (00:37→12:27)
[2020-05-31] MEDS: D5 1/2 NS W/KCL 20 MEQ/L 1,000 ML IV SCH ×3 (00:37→20:46)
[2020-05-31 03:50] LABS: BASOPHILS % (AUTO) 0 % (0-10); EOSINOPHILS % (AUTO) 0 % (0-10); HEMATOCRIT 35 % (35-52); HEMOGLOBIN 11.9 g/dL (11.5-16.0); LYMPHOCYTES # (AUTO) 1.2 10^3/uL (1.0-4.0); LYMPHOCYTES % (AUTO) 32 % (12-44); MEAN CORPUSCULAR HEMOGLOBIN 32 pg (25-34); MEAN CORPUSCULAR HGB CONC 34 g/dL (32-36); MEAN CORPUSCULAR VOLUME 94 fL (80-99); MEAN PLATELET VOLUME 10.6 fL (9.0-12.2); MONOCYTES # (AUTO) 0.4 10^3/uL (0.0-1.0); MONOCYTES % (AUTO) 12 % (0-12); NEUTROPHILS % (AUTO) 56 % (42-75); PLATELET COUNT 221 10^3/uL (130-400); WHITE BLOOD COUNT 3.6 10^3/uL (4.3-11.0)
[2020-05-31 04:30] LABS: ALBUMIN 3.6 GM/DL (3.2-4.5); BILIRUBIN,TOTAL 0.4 MG/DL (0.1-1.0); CALCIUM 8.2 MG/DL (8.5-10.1); CREATININE SERUM 0.95 MG/DL (0.60-1.30); POTASSIUM 3.6 MMOL/L (3.6-5.0)
[2020-05-31] MEDS ORDERED: DEXAMETHASONE IV SCH (07:00)
--- NOTE | 2020-05-31 07:33 | Pulmonary Consultation ---
History of Present Illness History of Present Illness Date Seen by Provider: May 31, 2020 Time Seen by Provider: 08:11 Date of Admission History of Present Illness 80yo who tested COVID positive on 05/19 presented to ED secondary to worsening SOB, fever (101), nausea, and cough. Pt's daughter is also COVID positive. Denies CP. Her SP02 was 92% upon hospital admission. Allergies and Home Medications Allergies Coded Allergies: Rmcpemr-Dtx-Iqc Reductase Inhibitor (Verified Allergy, Severe, PROBLEMS WITH EYES, 03/18/19) Home Medications Amlodipine Besylate 5 Mg Tablet, 5 MG PO DAILY Prescribed by: DC HALL on 09/22/162058 Citalopram Hydrobromide 20 Mg Tablet, 20 MG PO DAILY, (Reported) Clonidine HCl 0.1 Mg Tablet, 0.1 MG PO TID, (Reported) Diazepam 5 Mg Tablet, 5 MG PO HS PRN for SLEEP, (Reported) Dicyclomine HCl 20 Mg Tablet, 20 MG PO QID, (Reported) Hydrochlorothiazide 25 Mg Tablet, 25 MG PO DAILY, (Reported) Levothyroxine Sodium 100 Mcg Tablet, 100 MCG PO DAILY, (Reported) Metoprolol Tartrate 50 Mg Tablet, 50 MG PO BID, (Reported) Pantoprazole Sodium 40 Mg Tablet.dr, 40 MG PO DAILY, (Reported) Valsartan 320 Mg Tablet, 320 MG PO DAILY, (Reported) Past Ysmlmwk-Ezxxkx-Pqfgmf Hx Past Med/Social Hx: Reviewed and Corrections made Patient Social History Alcohol Use: Denies Use Recreational Drug Use: No Smoking Status: Never a Smoker 2nd Hand Smoke Exposure: No Recent Foreign Travel: No Contact w/Someone Who Travel: No Recent Infectious Disease Expo: No Recent Hopitalizations: No Immunizations Up To Date Date of Pneumonia Vaccine: May 30, 2015 Date of Influenza Vaccine: Apr 28, 2018 Seasonal Allergies Seasonal Allergies: No Past Medical History Surgeries: Yes (R TKR, BREAST BX, ORAL SURGERY) Appendectomy, Breast, Gallbladder, Joint Replacement, Orthopedic, Vascular Surgery Respiratory: Yes Sleep Apnea Currently Using CPAP: No (HAS MACHINE BUT REFUSES TO WEAR) Cardiac: Yes (AORTIC STENOSIS, enlarged heart;VARICOSE VEINS STRIPPED) High Cholesterol, Hypertension Neurological: No : No 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 Sexually Transmitted Disease: No HIV/AIDS: No Genitourinary: No Gastrointestinal: Yes (S/P GB SURGERY WITH SOME DUMPING SYNDROME) Gastroesophageal Reflux, Diverticulosis, Hemorrhoids, Irritable Bowel Musculoskeletal: Yes (RIGHT KNEE REPLACEMENT) Arthritis Endocrine: Yes Hypothyroidsim HEENT: Yes (R VITREOUS TEAR ) Loss of Vision: Denies Hearing Impairment: Denies Cancer: No Psychosocial: Yes (VALIUM FOR SLEEP) Sleep Difficulties, Anxiety Integumentary: No Blood Disorders: No Adverse Reaction/Blood Tranf: No (N/A) Family Medical History PAST SURGICAL HISTORY: -COLONOSCOPY 2018--DIVERTICULAR DISEASE AND HEMORRHOIDS -RIGHT KNEE SCOPE -RIGHT TOTAL KNEE REPLACEMENT -BILATERAL TUBAL LIGATION -BILATERAL LEG VEIN STRIPPING -CHOLECYSTECTOMY 2009 -APPENDECTOMY SMALL CHILD -BREAST BIOPSY -ORAL SURGERY Sepsis Event Evaluation Height, Weight, BMI Height: 5'2.00" Weight: 155lbs. 0.0oz. 70.382241an; 29.26 BMI Method:Stated Exam Exam Vital Signs Date Time Temp Pulse Resp B/P (MAP) Pulse Ox O2 Delivery O2 Flow Rate FiO2 05/31/20 04:00 55 160/76 94 Nasal Cannula 5.00 05/31/20 03:30 36.5 59 20 164/83 93 Nasal Cannula 5.00 05/31/20 01:00 49 05/31/20 00:35 36.7 56 18 145/81 92 Nasal Cannula 5.00 05/31/20 00:35 36.7 56 18 145/81 92 Nasal Cannula 5.00 05/30/20 22:37 36.4 56 20 152/75 94 Nasal Cannula 5.00 05/30/20 22:37 36.4 56 20 152/75 94 Nasal Cannula 5.00 05/30/20 22:22 36.3 53 20 156/78 95 Nasal Cannula 5.00 05/30/20 22:22 36.3 53 20 156/78 95 Nasal Cannula 5.00 05/30/20 21:00 Nasal Cannula 5.00 05/30/20 21:00 94 Nasal Cannula 5.00 05/30/20 20:00 62 20 142/75 95 Nasal Cannula 4.00 05/30/20 19:25 36.2 66 18 125/75 94 Nasal Cannula 4.00 05/30/20 19:00 72 05/30/20 18:52 70 17 91 Nasal Cannula 4.00 05/30/20 17:36 36.7 60 20 157/84 96 Nasal Cannula 2.00 05/30/20 17:04 36.4 105 22 171/86 92 Nasal Cannula 2.00 05/30/20 16:43 96 Nasal Cannula 2.00 05/30/20 16:02 61 05/30/20 15:35 37.4 63 20 150/80 (89) 98 Nasal Cannula 2.00 05/30/20 15:30 95 Nasal Cannula 2.00 05/30/20 15:30 36.3 66 18 168/87 96 Nasal Cannula 2.00 05/30/20 10:05 37.4 63 20 128/70 (89) 98 Nasal Cannula 2.00 05/30/20 10:05 98 Nasal Cannula 4.00 I & O 05/31/20 07:00 Intake Total 2955 ml Output Total 1 ml Balance 2954 ml Height & Weight Height: 5'2.00" Weight: 155lbs. 0.0oz. 70.793445yz; 29.26 BMI Method:Stated Capillary Refill: Less Than 3 Seconds Gastrointestinal: normal bowel sounds, non tender, soft, no organomegaly Results Lab Laboratory Tests 05/30/20 10:30 05/30/20 10:45 05/31/20 03:37 GABRIEL STOREY DO May 31, 2020 07:33
[2020-05-31] MEDS: cloNIDine 0.1 MG (CATAPRES) TAB PO SCH ×2 (08:37→20:45)
[2020-05-31] MEDS: PANTOPRAZOLE 40 MG (PROTONIX) TAB PO SCH (08:37)
[2020-05-31] MEDS: meTOprolol TARTRATE 50 MG (LOPRESSOR) TAB PO SCH ×2 (08:37→20:45)
[2020-05-31] MEDS: VALSARTAN 160 MG (DIOVAN) TABLET PO SCH (08:37)
[2020-05-31] MEDS: LEVOTHYROXINE 100 MCG (LEVOTHROID) TAB PO SCH (08:37)
[2020-05-31 09:06] VITALS: BP 158/74
[2020-05-31] MEDS ORDERED: RT-ALBUTEROL INHALER HFA (VENTOLIN HFA) 18 GM IH PRN (09:45)
[2020-05-31] MEDS: RT-ALBUTEROL INHALER HFA (VENTOLIN HFA) 18 GM IH SCH ×2 (14:38→23:33)
[2020-05-31] MEDS: REMDESIVIR INJ 100 MG in NS (IVPB) 230 ML IV SCH (17:29)
[2020-05-31] MEDS: DIAZEPAM 5 MG (VALIUM) TABLET PO PRN (21:05)
[2020-06-01] MEDS: ENOXAPARIN 80 MG/0.8 ML (LOVENOX) SYR SC SCH ×2 (01:05→13:23)
[2020-06-01] MEDS: RT-ALBUTEROL INHALER HFA (VENTOLIN HFA) 18 GM IH SCH ×4 (01:34→19:29)
[2020-06-01 07:42] VITALS: BP 186/92
[2020-06-01] MEDS: VALSARTAN 160 MG (DIOVAN) TABLET PO SCH (08:40)
[2020-06-01] MEDS: LEVOTHYROXINE 100 MCG (LEVOTHROID) TAB PO SCH (08:40)
[2020-06-01] MEDS: meTOprolol TARTRATE 50 MG (LOPRESSOR) TAB PO SCH (08:41)
[2020-06-01] MEDS: amLODIPine 10 MG (NORVASC) TAB PO SCH (08:43)
[2020-06-01] MEDS: PANTOPRAZOLE 40 MG (PROTONIX) TAB PO SCH (08:43)
[2020-06-01] MEDS: D5 1/2 NS W/KCL 20 MEQ/L 1,000 ML IV SCH ×2 (08:43→17:06)
[2020-06-01] MEDS: cloNIDine 0.2 MG (CATAPRES) TAB PO SCH ×3 (08:43→21:06)
[2020-06-01 09:24] LABS: ALANINE AMINOTRANSFERASE 54 U/L (0-55); ALBUMIN 3.2 GM/DL (3.2-4.5); ALKALINE PHOSPHATASE 57 U/L (40-136); BILIRUBIN,TOTAL 0.4 MG/DL (0.1-1.0); BUN/CREATININE RATIO 16; CALCIUM 7.9 MG/DL (8.5-10.1); CARBON DIOXIDE 23 MMOL/L (21-32); CHLORIDE 108 MMOL/L (98-107); GFR ESTIMATED > 60; GLUCOSE 143 MG/DL (70-105); POTASSIUM 3.5 MMOL/L (3.6-5.0); SODIUM 140 MMOL/L (135-145); TOTAL PROTEIN 6.2 GM/DL (6.4-8.2)
[2020-06-01 11:58] VITALS: BP 166/80
[2020-06-01 16:31] VITALS: BP 118/62
[2020-06-01] MEDS: REMDESIVIR INJ 100 MG in NS (IVPB) 230 ML IV SCH (17:06)
--- NOTE | 2020-06-01 17:39 | Progress Note - Hospitalist ---
Subjective HPI/CC On Admission Date Seen by Provider: Jun 01, 2020 Time Seen by Provider: 11:35 Subjective/Events-last exam She reports feeling better. She does not feel short of breath. She is having a cough. She denies fevers. She has been eating and drinking, but she doesn't have much of an appetite. Focused Exam Lactate Level 05/30/20 10:30: Lactic Acid Level 0.97 Objective Exam Vital Signs Vital Signs Date Time Temp Pulse Resp B/P (MAP) Pulse Ox O2 Delivery O2 Flow Rate FiO2 06/01/20 16:31 36.2 62 18 118/62 (80) 93 Nasal Cannula 2.00 05/31/20 09:06 40 Capillary Refill : Less Than 3 Seconds General Appearance: No Apparent Distress, Obese Respiratory: Lungs Clear, Normal Breath Sounds, No Respiratory Distress Cardiovascular: Regular Rate, Rhythm, No Edema, No Murmur Gastrointestinal: Normal Bowel Sounds, Non Tender, Soft Extremity: Normal Inspection, Non Tender, No Pedal Edema Neurologic/Psychiatric: Alert, Oriented x3, No Motor/Sensory Deficits, Normal Mood/Affect Skin: Normal Color, Warm/Dry Results/Procedures Lab Laboratory Tests 06/01/20 08:50 Patient resulted labs reviewed. Imaging: Reviewed Imaging Report Assessment/Plan Assessment and Plan Assess & Plan/Chief Complaint Acute respiratory failure due to COVID-19 pulmonary embolism associated with COVID-19 Decadron Remdesivir day 3/5 s/p convalescent plasma 1 Started on Lovenox therapeutic Transition to Eliquis Supplemental oxygen as needed, weaning as able HTN Hypothyroidism Continue home meds DVT Prophylaxis: already receiving therapeutic anticoagulation Diagnosis/Problems Diagnosis/Problems (1) Acute respiratory failure due to COVID-19 Status: Acute (2) Pulmonary embolism associated with COVID-19 Status: Acute (3) HTN (hypertension) Status: Chronic (4) Hypothyroidism Status: Chronic Clinical Quality Measures DVT/VTE Risk/Contraindication: Risk Factor Score Per Nursin RFS Level Per Nursing on Admit: 4+=Very High KANIKA MILLER MD Jun 01, 2020 17:39
[2020-06-01 20:57] VITALS: BP 156/74
[2020-06-01] MEDS: APIXABAN 5 MG (ELIQUIS) TABLET PO SCH (21:06)
[2020-06-02 00:55] VITALS: BP 164/80
[2020-06-02] MEDS: RT-ALBUTEROL INHALER HFA (VENTOLIN HFA) 18 GM IH SCH ×2 (02:10→10:24)
[2020-06-02] MEDS: D5 1/2 NS W/KCL 20 MEQ/L 1,000 ML IV SCH ×2 (03:52→14:07)
[2020-06-02 06:16] LABS: ALBUMIN 3.1 GM/DL (3.2-4.5); CHLORIDE 108 MMOL/L (98-107); POTASSIUM 3.9 MMOL/L (3.6-5.0); SODIUM 137 MMOL/L (135-145)
[2020-06-02 06:17] LABS: CALCIUM 7.9 MG/DL (8.5-10.1)
[2020-06-02 06:18] LABS: GLUCOSE 163 MG/DL (70-105); TOTAL PROTEIN 5.9 GM/DL (6.4-8.2)
[2020-06-02 06:19] LABS: CARBON DIOXIDE 20 MMOL/L (21-32)
[2020-06-02 06:20] LABS: BILIRUBIN,TOTAL 0.4 MG/DL (0.1-1.0)
[2020-06-02 06:21] LABS: ALKALINE PHOSPHATASE 52 U/L (40-136)
[2020-06-02 06:22] LABS: CREATININE SERUM 0.67 MG/DL (0.60-1.30); GFR ESTIMATED > 60
[2020-06-02 06:23] LABS: BUN/CREATININE RATIO 16
[2020-06-02 06:25] LABS: ALANINE AMINOTRANSFERASE 58 U/L (0-55); MAGNESIUM 1.9 MG/DL (1.6-2.4)
[2020-06-02 07:56] VITALS: BP 166/83
[2020-06-02] MEDS: amLODIPine 10 MG (NORVASC) TAB PO SCH (08:47)
[2020-06-02] MEDS: VALSARTAN 160 MG (DIOVAN) TABLET PO SCH (08:47)
[2020-06-02] MEDS: cloNIDine 0.2 MG (CATAPRES) TAB PO SCH ×2 (08:47→13:30)
[2020-06-02] MEDS: PANTOPRAZOLE 40 MG (PROTONIX) TAB PO SCH (08:47)
[2020-06-02] MEDS: LEVOTHYROXINE 100 MCG (LEVOTHROID) TAB PO SCH (08:47)
[2020-06-02] MEDS: APIXABAN 5 MG (ELIQUIS) TABLET PO SCH (08:48)
[2020-06-02] MEDS: meTOprolol TARTRATE 50 MG (LOPRESSOR) TAB PO SCH (08:55)
--- NOTE | 2020-06-02 08:55 | NUR ---
metoprolol held for HR 59.
[2020-06-02] MEDS ORDERED: dexAMETHasone 6 MG TAB (DECADRON) PO SCH (09:00)
--- NOTE | 2020-06-02 10:37 | NUR ---
pt was placed on room air for 15minutes. pt had to use the bathroom. pt 02 checked after bathroom use and pt saturation was 86%. pt was placed on 1.5 liters and o2 saturation came up to 93%. pt will need 1.5L on excersion. Addendum: 06/02/20 at 1039 by ANGEL VILLANUEVA RT Amended: Links added.
[2020-06-02] MEDS ORDERED: APIX5TAB PO (10:47)
--- NOTE | 2020-06-02 11:13 | Discharge Summary ---
Discharge Summary Hospital Course Was the Problem List Reviewed?: Yes Problems/Dx: (1) Acute respiratory failure due to COVID-19 Status: Acute (2) Pulmonary embolism associated with COVID-19 Status: Acute (3) HTN (hypertension) Status: Chronic (4) Hypothyroidism Status: Chronic Hospital Course Date of Admission: May 30, 2020 at 13:30 Admission Diagnosis: Acute respiratory failure due to COVID-19 and pulmonary embolism Family Physician/Provider: Taylor Cruz MD Date of Discharge: 06/02/20 Discharge Diagnosis: Acute respiratory failure due to COVID-19 and pulmonary embolism Hospital Course: Cheryl Osborne is an 80-year-old female who was admitted with acute respiratory failure due to COVID-19 and pulmonary embolism. She was treated with Decadron, Remdesivir, and convalescent plasma. She was started on Lovenox for pulmonary embolism and then transitioned to Eliquis. She was provided with an Eliquis card. She responded well to treatment. She was requiring 2 L with exertion at the time of discharge. She was discharged home in stable condition. Labs and Pending Lab Test: Laboratory Tests 06/02/20 05:50: Sodium Level 137, Potassium Level 3.9, Chloride Level 108H, Carbon Dioxide Level 20L, Anion Gap 9, Blood Urea Nitrogen 11, Creatinine 0.67, Estimat Glomerular Filtration Rate > 60, BUN/Creatinine Ratio 16, Glucose Level 163H, Calcium Level 7.9L, Corrected Calcium 8.6, Magnesium Level 1.9, Total Bilirubin 0.4, Aspartate Amino Transf (AST/SGOT) 58H, Alanine Aminotransferase (ALT/SGPT) 58H, Alkaline Phosphatase 52, Total Protein 5.9L, Albumin 3.1L Microbiology 05/30/20 Blood Culture - Preliminary, Resulted No growth 05/30/20 Urine Culture - Final, Complete NO GROWTH 05/30/20 Influenza Types A,B Antigen (DEL) - Final, Complete Home Meds Active Eliquis (Apixaban) 5 Mg Tablet 5 Mg PO BID 30 Days TAKE 2 TABLETS BID X 7 DAYS, THEN 1 TABLET BID Norvasc (Amlodipine Besylate) 5 Mg Tablet 5 Mg PO DAILY Reported Clonidine HCl 0.1 Mg Tablet 0.1 Mg PO TID Citalopram HBr (Citalopram Hydrobromide) 20 Mg Tablet 20 Mg PO DAILY Levothyroxine Sodium 100 Mcg Tablet 100 Mcg PO DAILY Diazepam 5 Mg Tablet 5 Mg PO HS PRN Dicyclomine HCl 20 Mg Tablet 20 Mg PO QID Pantoprazole Sodium 40 Mg Tablet.dr 40 Mg PO DAILY Hydrochlorothiazide 25 Mg Tablet 25 Mg PO DAILY Metoprolol Tartrate 50 Mg Tablet 50 Mg PO BID Valsartan 320 Mg Tablet 320 Mg PO DAILY Assessment/Pt Instructions take medications as prescribed. You're being started on Eliquis for pulmonary embolism. Follow-up with your primary care physician. Return with worsening shortness of breath or if you feel like you're getting worse. Discharge Planning: <30 minutes discharge planning Discharge Instructions Discharge Diet: Regular Diet Activity as Tolerated: Yes Discharge Physical Examination Vital Signs Vital Signs Date Time Temp Pulse Resp B/P (MAP) Pulse Ox O2 Delivery O2 Flow Rate FiO2 06/02/20 10:27 92 95 2.00 86 06/02/20 10:25 Nasal Cannula 06/02/20 07:56 18 166/83 (110) 06/02/20 00:55 36.0 05/31/20 09:06 40 General Appearance: No Apparent Distress, WD/WN Respiratory: Lungs Clear, Normal Breath Sounds, No Respiratory Distress Cardiovascular: Regular Rate, Rhythm, No Edema, No Murmur Gastrointestinal: Normal Bowel Sounds, Non Tender, Soft Extremity: Normal Inspection, Non Tender, No Pedal Edema Skin: Normal Color, Warm/Dry Neurologic/Psychiatric: Alert, Oriented x3, No Motor/Sensory Deficits, Normal Mood/Affect Allergies: Coded Allergies: Zkipjac-Qda-Djy Reductase Inhibitor (Verified Allergy, Severe, PROBLEMS WITH EYES, 03/18/19) Discharge Summary Date of Admission May 30, 2020 at 13:30 Date of Discharge Discharge Date: Jun 02, 2020 Discharge Time: 11:10 Admission Diagnosis Acute respiratory failure due to COVID-19 and pulmonary embolism Discharge Diagnosis Acute respiratory failure due to COVID-19, pulmonary embolism associated with COVID-19 (1) Acute respiratory failure due to COVID-19 Status: Acute (2) Pulmonary embolism associated with COVID-19 Status: Acute (3) HTN (hypertension) Status: Chronic (4) Hypothyroidism Status: Chronic Clinical Quality Measures DVT/VTE Risk/Contraindication: Risk Factor Score Per Nursin RFS Level Per Nursing on Admit: 4+=Very High KANIKA MILLER MD Jun 02, 2020 11:12
[2020-06-02 12:00] VITALS: BP 109/57
--- NOTE | 2020-06-02 14:12 | NUR ---
CM/SS finalized discharge. Plan: Patient will discharge home with a new home o2 need. Script for 2L with exercise. DME: The patient was provided with a patient preference list. She chose [facility]. BARBARA/SS faxed face sheet, H&P, home o2 study, and script to [facility]. BARBARA/SS contacted [facility] to inform them of oxygen need. They will deliver to the hospital. BARBARA/CHACORTA was informed by the patient's primary care nurse Stephany that the oxygen is not working properly. BARBARA/SS spoke with Yajaira at agency. She reports her driver sales will come pick this up and switch them out. No further needs.
[2020-06-02 15:10] VITALS: BP 109/57
== END 2020-06-02 15:10 | disposition home or self-care (01) | DRG 177 ==
LOC: EDUNIT# 10:05 → ER 10:07 → CSD 13:30 → 4TH 05-31 11:00
PROVIDERS: ADMIT Internal Medicine; ATTEND Internal Medicine
PROC: XW033E5 Introduction of Remdesivir Anti-infective into Peripheral Vein, Percutaneous Approach, New Technology Group 5 (ICD-10-PCS; principal; 2020-05-30)
PROC: XW13325 Transfusion of Convalescent Plasma (Nonautologous) into Peripheral Vein, Percutaneous Approach, New Technology Group 5 (ICD-10-PCS; 2020-05-30)
DX: U07.1 COVID-19 (principal); J96.00 Acute respiratory failure, unspecified whether with hypoxia or hypercapnia; I26.99 Other pulmonary embolism without acute cor pulmonale; J12.89 Other viral pneumonia; G47.30 Sleep apnea, unspecified; I35.0 Nonrheumatic aortic (valve) stenosis; I10 Essential (primary) hypertension; E78.00 Pure hypercholesterolemia, unspecified; E03.9 Hypothyroidism, unspecified; I51.7 Cardiomegaly; K91.1 Postgastric surgery syndromes; K21.9 Gastro-esophageal reflux disease without esophagitis; K57.90 Diverticulosis of intestine, part unspecified, without perforation or abscess without bleeding; K58.9 Irritable bowel syndrome, unspecified; K64.9 Unspecified hemorrhoids; M19.91 Primary osteoarthritis, unspecified site; F41.9 Anxiety disorder, unspecified
CPT/HCPCS: 36415; 71045; 71275; 80053; 81000; 82550; 82553; 83605; 83735; 83880; 84145; 84484; 85025; 85379; 85610; 85652; 85730; 86141; 86900; 86901; 87040; 87088; 87804; 90662; 93005; 93041; 94640; 94664; 94760; 94761